=== PATIENT | male | born 1955 | race Caucasian/White ===

== ENCOUNTER → 2017-05-27 | Outpatient (REF) | payer MEDICARE, OTHER, BC ==
[2017-05-27 14:22] LABS: MAGNESIUM LEVEL 2.6 MG/DL (1.8-2.4); URIC ACID 6.9 MG/DL (3.5-7.2)
[2017-05-27 14:22] LABS: PHOSPHORUS LEVEL 3.1 MG/DL (2.5-4.9)
== END ==
LOC: M LAB REF 13:14
DX: C64.9 Malignant neoplasm of unspecified kidney, except renal pelvis (principal)
CPT/HCPCS: 83735

== ENCOUNTER → 2017-07-01 | Outpatient (REF) | payer MEDICARE, OTHER ==
[2017-07-01 14:15] LABS: PHOSPHORUS LEVEL 2.7 MG/DL (2.5-4.9)
[2017-07-01 14:15] LABS: MAGNESIUM LEVEL 2.7 MG/DL (1.8-2.4)
== END ==
LOC: M LAB REF 13:36
DX: C64.9 Malignant neoplasm of unspecified kidney, except renal pelvis (principal)
CPT/HCPCS: 83735

== ENCOUNTER → 2017-07-19 | Outpatient (REF) | payer MEDICARE, OTHER ==
[2017-07-19 19:22] LABS: PHOSPHORUS LEVEL 2.3 MG/DL (2.5-4.9)
[2017-07-19 19:22] LABS: MAGNESIUM LEVEL 2.9 MG/DL (1.8-2.4)
== END ==
LOC: M LAB REF 17:29
DX: C79.00 Secondary malignant neoplasm of unspecified kidney and renal pelvis (principal)
CPT/HCPCS: 83735

== ENCOUNTER → 2017-09-07 | Outpatient (REF) | payer MEDICARE, OTHER, BC ==
[2017-09-07 13:40] LABS: PHOSPHORUS LEVEL 1.9 MG/DL (2.5-4.9)
[2017-09-07 13:40] LABS: MAGNESIUM LEVEL 2.3 MG/DL (1.8-2.4)
== END ==
LOC: M LAB REF 12:54
DX: C20 Malignant neoplasm of rectum (principal)
CPT/HCPCS: 83735

== ENCOUNTER → 2017-10-18 | Outpatient (REF) | payer MEDICARE, OTHER, BC ==
[2017-10-18 14:11] LABS: MAGNESIUM LEVEL 2.2 MG/DL (1.8-2.4)
[2017-10-18 14:11] LABS: PHOSPHORUS LEVEL 2.6 MG/DL (2.5-4.9)
== END ==
LOC: M LAB REF 13:36
DX: C78.1 Secondary malignant neoplasm of mediastinum (principal); C64.1 Malignant neoplasm of right kidney, except renal pelvis
CPT/HCPCS: 83735

== ENCOUNTER → 2017-11-25 | Outpatient (REF) | payer MEDICARE, OTHER, BC ==
[2017-11-25 14:31] LABS: PHOSPHORUS LEVEL 2.2 MG/DL (2.5-4.9)
[2017-11-25 14:31] LABS: MAGNESIUM LEVEL 2.2 MG/DL (1.8-2.4)
== END ==
LOC: M LAB REF 13:55
DX: C78.1 Secondary malignant neoplasm of mediastinum (principal); C64.1 Malignant neoplasm of right kidney, except renal pelvis
CPT/HCPCS: 83735

== ENCOUNTER 2018-02-10 16:03 | Emergency (ER) | payer MEDICARE, BC, OTHER ==
[2018-02-10] MEDS: METOPROLOL TART 25 MG TABLET PO (18:32)
== END 2018-02-10 18:38 | disposition home or self-care (01) ==
LOC: M ED 16:03
DX: R04.0 Epistaxis (principal); I10 Essential (primary) hypertension; F17.200 Nicotine dependence, unspecified, uncomplicated; Z88.8 Allergy status to other drugs, medicaments and biological substances; Z79.84 Long term (current) use of oral hypoglycemic drugs; Z79.899 Other long term (current) drug therapy
CPT/HCPCS: 99283

== ENCOUNTER 2018-02-12 21:14 | Emergency (ER) | payer MEDICARE, BC, OTHER ==
[2018-02-12] MEDS: CEPHALEXIN 500 MG CAP PO (23:45)
== END 2018-02-12 23:52 | disposition home or self-care (01) ==
LOC: M ED 21:14
DX: R04.0 Epistaxis (principal); I10 Essential (primary) hypertension; E11.9 Type 2 diabetes mellitus without complications; F17.200 Nicotine dependence, unspecified, uncomplicated; Z85.528 Personal history of other malignant neoplasm of kidney; Z90.5 Acquired absence of kidney; Z79.899 Other long term (current) drug therapy; Z79.84 Long term (current) use of oral hypoglycemic drugs; Z79.82 Long term (current) use of aspirin; Z79.51 Long term (current) use of inhaled steroids
CPT/HCPCS: 30906

== ENCOUNTER 2018-02-13 09:29 | Emergency (ER) | payer MEDICARE, BC, OTHER | END 2018-02-13 11:19 | disposition home or self-care (01) | LOC: M ED 09:29 | DX: R04.0 Epistaxis (principal); Z72.0 Tobacco use; Z88.6 Allergy status to analgesic agent | CPT/HCPCS: 30901 ==

== ENCOUNTER 2018-03-08 14:38 | Inpatient (IN) | payer MEDICARE, BC, OTHER ==
[2018-03-08 16:14] LABS: HEMATOCRIT 46.3 % (42.0-52.0); HEMOGLOBIN 15.9 g/dl (13.5-17.5); MEAN CORPUSCULAR HEMOGLOBIN 33.2 pg (27.0-33.0); MEAN CORPUSCULAR HGB CONC 34.3 g/dl (32.0-36.5); MEAN CORPUSCULAR VOLUME 96.7 fl (80.0-96.0); PLATELET COUNT, AUTOMATED 224 10^3/uL (150-450); RED BLOOD COUNT 4.79 10^6/uL (4.30-6.10); RED CELL DISTRIBUTION WIDTH 13.4 % (11.5-14.5); WHITE BLOOD COUNT 7.9 10^3/uL (4.0-10.0)
[2018-03-08] MEDS: NS 1,000 ML IV ×4 (16:32→21:22)
[2018-03-08 16:38] LABS: ALBUMIN 3.3 GM/DL (3.2-5.2); ALBUMIN/GLOBULIN RATIO 1.06 (1.00-1.93); ALKALINE PHOSPHATASE 50 U/L (45-117); ALT/SGPT 21 U/L (12-78); ANION GAP 13 MEQ/L (8-16); AST/SGOT 15 U/L (7-37); BILIRUBIN,DIRECT 0.2 MG/DL (0.0-0.2); BILIRUBIN,TOTAL 0.6 MG/DL (0.2-1.0); BLOOD UREA NITROGEN 35 MG/DL (7-18); CALCIUM LEVEL 8.9 MG/DL (8.8-10.2); CARBON DIOXIDE LEVEL 16 MEQ/L (21-32); CHLORIDE LEVEL 105 MEQ/L (98-107); CK-MB VALUE MASS < 1.0 NG/ML (<3.6); CPK CREATINE PHOSPHOKINASE 39 U/L (39-308); CREATININE FOR GFR 2.93 MG/DL (0.70-1.30); FREE T4 1.28 NG/DL (0.76-1.46); GLOMERULAR FILTRATION RATE 23.3 (>49); GLUCOSE, FASTING 117 MG/DL (70-100); LIPASE 95 U/L (73-393); MB/CK RELATIVE INDEX 2.56 (< OR =4); POTASSIUM SERUM 4.3 MEQ/L (3.5-5.1); SODIUM LEVEL 134 MEQ/L (136-145); TOTAL PROTEIN 6.4 GM/DL (6.4-8.2); TROPONIN I < 0.02 NG/ML (< 0.10)
[2018-03-08 16:39] LABS: ADD MANUAL DIFFER YES; DIFF SLIDE NUMBER 332; POS COUNT POS FLAG; POSITIVE MORPH POS FLAG
[2018-03-08] MEDS: ONDANSETRON 4MG/2ML VIAL (J2405) IV ×2 (16:47→21:20)
[2018-03-08 17:09] LABS: ATYPICAL LYMPH 7 % (0-5); BANDS 24 % (< 11); BASOPHILS 1 % (0-4); EOSINOPHILS 1 % (0-5); LYMPHOCYTES 15 % (16-52); MONOCYTES 14 % (0-8); NEUTROPHILS 38 % (35-75); PLATELET CLUMPS SMALL AMT; PLATELET ESTIMATE NORMAL (NORMAL); TOXIC GRANULATION 1+
[2018-03-08 17:29] LABS: INR 1.02; PROTHROMBIN TIME 13.5 SECONDS (12.1-14.4)
[2018-03-08 17:30] LABS: PARTIAL THROMBOPLASTIN TIME 24.9 SECONDS (25.4-37.6)
[2018-03-08 17:54] LABS: LACTIC ACID SEPSIS PROTOCOL 3.2 MMOL/L (0.4-2.0)
[2018-03-08] MEDS ORDERED: ALPRAZolam 0.25 MG TAB PO (19:00)
[2018-03-08] MEDS ORDERED: ALBUTEROL 90 MCG/ACT 8GM HFA INHALER INH (19:00)
[2018-03-08] MEDS: PANTOPRAZOLE 40MG INJ (PROTONIX) (C9113) IV (21:20)
[2018-03-08] MEDS: cefTRIAXone SOD 2 GM in D5W MINI-BAG PLUS 50 ML IV (21:21)
[2018-03-08] MEDS: metroNIDAZOLE 500 MG in APPROPRIATE DILUENT 1 EA IV (21:22)
[2018-03-09] MEDS: metroNIDAZOLE 500 MG in APPROPRIATE DILUENT 1 EA IV (04:45)
[2018-03-09] MEDS: NS 1,000 ML IV ×3 (04:46→13:12)
[2018-03-09 07:43] LABS: HEMATOCRIT 40.8 % (42.0-52.0); MEAN CORPUSCULAR HEMOGLOBIN 32.6 pg (27.0-33.0); MEAN CORPUSCULAR HGB CONC 33.6 g/dl (32.0-36.5); MEAN CORPUSCULAR VOLUME 97.1 fl (80.0-96.0); PLATELET COUNT, AUTOMATED 173 10^3/uL (150-450); RED CELL DISTRIBUTION WIDTH 13.5 % (11.5-14.5); WHITE BLOOD COUNT 5.6 10^3/uL (4.0-10.0)
[2018-03-09 07:53] LABS: HEMOGLOBIN 13.7 g/dl (13.5-17.5)
[2018-03-09 08:04] LABS: ANION GAP 10 MEQ/L (8-16); BLOOD UREA NITROGEN 34 MG/DL (7-18); CALCIUM LEVEL 8.3 MG/DL (8.8-10.2); CARBON DIOXIDE LEVEL 16 MEQ/L (21-32); CHLORIDE LEVEL 112 MEQ/L (98-107); CREATININE FOR GFR 2.05 MG/DL (0.70-1.30); GLOMERULAR FILTRATION RATE 35.2 (>49); GLUCOSE, FASTING 108 MG/DL (70-100); POTASSIUM SERUM 3.8 MEQ/L (3.5-5.1); SODIUM LEVEL 138 MEQ/L (136-145)
[2018-03-09] MEDS: predniSONE 50 MG TAB PO (09:03)
[2018-03-09] MEDS: PANTOPRAZOLE 40MG INJ (PROTONIX) (C9113) IV (20:29)
[2018-03-09] MEDS: cefTRIAXone SOD 2 GM in D5W MINI-BAG PLUS 50 ML IV (20:29)
[2018-03-10] MEDS: NS 1,000 ML IV ×2 (02:36→08:06)
[2018-03-10 05:46] LABS: HEMATOCRIT 35.5 % (42.0-52.0); HEMOGLOBIN 11.8 g/dl (13.5-17.5); MEAN CORPUSCULAR HEMOGLOBIN 32.7 pg (27.0-33.0); MEAN CORPUSCULAR HGB CONC 33.2 g/dl (32.0-36.5); MEAN CORPUSCULAR VOLUME 98.3 fl (80.0-96.0); PLATELET COUNT, AUTOMATED 177 10^3/uL (150-450); RED BLOOD COUNT 3.61 10^6/uL (4.30-6.10); RED CELL DISTRIBUTION WIDTH 13.4 % (11.5-14.5); WHITE BLOOD COUNT 6.5 10^3/uL (4.0-10.0)
[2018-03-10 06:11] LABS: BLOOD UREA NITROGEN 24 MG/DL (7-18); CARBON DIOXIDE LEVEL 16 MEQ/L (21-32); CHLORIDE LEVEL 118 MEQ/L (98-107); CREATININE FOR GFR 1.37 MG/DL (0.70-1.30); GLOMERULAR FILTRATION RATE 56.1 (>49); GLUCOSE, FASTING 140 MG/DL (70-100); POTASSIUM SERUM 3.7 MEQ/L (3.5-5.1); SODIUM LEVEL 142 MEQ/L (136-145)
[2018-03-10 06:12] LABS: ANION GAP 8 MEQ/L (8-16); CALCIUM LEVEL 8.6 MG/DL (8.8-10.2)
[2018-03-10] MEDS: predniSONE 50 MG TAB PO (08:06)
== END 2018-03-10 11:50 | disposition home or self-care (01) | DRG 371 ==
LOC: M PCU 03-09 20:01 → M ED 14:38 → M ED INP 18:57 → M ICU 21:05
DX: A04.9 Bacterial intestinal infection, unspecified (principal); R57.1 Hypovolemic shock; N17.9 Acute kidney failure, unspecified; C77.1 Secondary and unspecified malignant neoplasm of intrathoracic lymph nodes; F17.210 Nicotine dependence, cigarettes, uncomplicated; J44.9 Chronic obstructive pulmonary disease, unspecified; R73.03 Prediabetes; Z85.528 Personal history of other malignant neoplasm of kidney; Z90.5 Acquired absence of kidney; Z98.1 Arthrodesis status; Z79.84 Long term (current) use of oral hypoglycemic drugs; Z79.899 Other long term (current) drug therapy; Z88.6 Allergy status to analgesic agent

== ENCOUNTER 2018-03-14 10:04 | Inpatient (IN) | payer MEDICARE, BC, OTHER ==
[2018-03-14] MEDS: NS 1,000 ML IV (10:55)
[2018-03-14] MEDS ORDERED: NS 1,000 ML IV (11:14)
[2018-03-14] MEDS ORDERED: POTASSIUM CHLORIDE 10 MEQ SR TABLET PO (11:30)
[2018-03-14] MEDS: POTASSIUM CHLORIDE 10 MEQ SR TABLET PO ×4 (11:37→22:51)
[2018-03-14 11:41] LABS: ALBUMIN 3.4 GM/DL (3.2-5.2); ALBUMIN/GLOBULIN RATIO 1.06 (1.00-1.93); ALKALINE PHOSPHATASE 63 U/L (45-117); ALT/SGPT 23 U/L (12-78); AST/SGOT 11 U/L (7-37); BILIRUBIN,DIRECT 0.1 MG/DL (0.0-0.2); BILIRUBIN,TOTAL 0.4 MG/DL (0.2-1.0); MAGNESIUM LEVEL 2.6 MG/DL (1.8-2.4); PHOSPHORUS LEVEL 4.1 MG/DL (2.5-4.9); TOTAL PROTEIN 6.6 GM/DL (6.4-8.2)
[2018-03-14] MEDS ORDERED: PROCHLORPERAZINE 5 MG TAB (S0183) PO (11:45)
[2018-03-14] MEDS ORDERED: ALBUTEROL 90 MCG/ACT 8GM HFA INHALER INH (11:45)
[2018-03-14] MEDS ORDERED: IPRATROPIUM 0.5MG/ALBUTEROL 2.5MG INH SOL UD 3ML (DUONEB)(J7620) NEB (11:45)
[2018-03-14] MEDS: SODIUM BICARBONATE 150 MEQ in STERILE WATER LITER BAG 1,000 ML IV (13:31)
[2018-03-14] MEDS: metroNIDAZOLE 500 MG in APPROPRIATE DILUENT 1 EA IV (13:31)
[2018-03-14 17:04] LABS: ANION GAP 9 MEQ/L (8-16); BLOOD UREA NITROGEN 48 MG/DL (7-18); CALCIUM LEVEL 9.1 MG/DL (8.8-10.2); CARBON DIOXIDE LEVEL 13 MEQ/L (21-32); CHLORIDE LEVEL 112 MEQ/L (98-107); CREATININE FOR GFR 2.05 MG/DL (0.70-1.30); GLOMERULAR FILTRATION RATE 35.2 (>49); GLUCOSE, FASTING 173 MG/DL (70-100); SODIUM LEVEL 134 MEQ/L (136-145)
[2018-03-14 17:10] LABS: LACTIC ACID SEPSIS PROTOCOL 4.7 MMOL/L (0.4-2.0)
[2018-03-14] MEDS: SODIUM BICARBONATE 150 MEQ in D5W 1,000 ML IV (17:50)
[2018-03-14] MEDS ORDERED: SODIUM BICARBONATE 325 MG TAB PO (18:30)
[2018-03-14] MEDS: SODIUM BICARBONATE 325 MG TAB PO (20:33)
[2018-03-14] MEDS: PIPERACILLIN/TAZOBACTAM SOD 2.25 GM in D5W MINI-BAG PLUS 50 ML IV (20:33)
[2018-03-14 21:09] LABS: IONIZED CALCIUM 4.7 MG/DL (4.5-5.3)
[2018-03-14 21:40] LABS: ANION GAP 8 MEQ/L (8-16); BLOOD UREA NITROGEN 48 MG/DL (7-18); CALCIUM LEVEL 9.2 MG/DL (8.8-10.2); CARBON DIOXIDE LEVEL 15 MEQ/L (21-32); CHLORIDE LEVEL 113 MEQ/L (98-107); CREATININE FOR GFR 1.91 MG/DL (0.70-1.30); GLOMERULAR FILTRATION RATE 38.2 (>49); GLUCOSE, FASTING 183 MG/DL (70-100); MAGNESIUM LEVEL 2.4 MG/DL (1.8-2.4); POTASSIUM SERUM 3.1 MEQ/L (3.5-5.1); SODIUM LEVEL 136 MEQ/L (136-145)
[2018-03-14 21:41] LABS: LACTIC ACID SEPSIS PROTOCOL 4.9 MMOL/L (0.4-2.0)
[2018-03-14] MEDS: LOPERAMIDE 2 MG CAP PO (22:51)
[2018-03-15] MEDS: POTASSIUM CHLORIDE 10 MEQ SR TABLET PO ×3 (00:33→05:14)
[2018-03-15 01:48] LABS: IONIZED CALCIUM 4.8 MG/DL (4.5-5.3)
[2018-03-15] MEDS: PIPERACILLIN/TAZOBACTAM SOD 2.25 GM in D5W MINI-BAG PLUS 50 ML IV ×4 (01:51→20:11)
[2018-03-15] MEDS: SODIUM BICARBONATE 150 MEQ in STERILE WATER LITER BAG 1,000 ML IV ×2 (01:52→09:56)
[2018-03-15 02:12] LABS: ANION GAP 9 MEQ/L (8-16); BLOOD UREA NITROGEN 48 MG/DL (7-18); CALCIUM LEVEL 9.6 MG/DL (8.8-10.2); CARBON DIOXIDE LEVEL 15 MEQ/L (21-32); CHLORIDE LEVEL 112 MEQ/L (98-107); CREATININE FOR GFR 1.94 MG/DL (0.70-1.30); GLOMERULAR FILTRATION RATE 37.5 (>49); GLUCOSE, FASTING 123 MG/DL (70-100); MAGNESIUM LEVEL 2.3 MG/DL (1.8-2.4); POTASSIUM SERUM 3.3 MEQ/L (3.5-5.1); SODIUM LEVEL 136 MEQ/L (136-145)
[2018-03-15] MEDS: LOPERAMIDE 2 MG CAP PO ×3 (02:43→07:55)
[2018-03-15 05:51] LABS: IONIZED CALCIUM 4.5 MG/DL (4.5-5.3)
[2018-03-15 05:57] LABS: HEMATOCRIT 46.5 % (42.0-52.0); MEAN CORPUSCULAR HEMOGLOBIN 32.4 pg (27.0-33.0); MEAN CORPUSCULAR HGB CONC 34.4 g/dl (32.0-36.5); MEAN CORPUSCULAR VOLUME 94.1 fl (80.0-96.0); PLATELET COUNT, AUTOMATED 281 10^3/uL (150-450); RED BLOOD COUNT 4.94 10^6/uL (4.30-6.10); RED CELL DISTRIBUTION WIDTH 13.4 % (11.5-14.5); WHITE BLOOD COUNT 14.4 10^3/uL (4.0-10.0)
[2018-03-15 06:10] LABS: ANION GAP 7 MEQ/L (8-16); BLOOD UREA NITROGEN 46 MG/DL (7-18); CALCIUM LEVEL 9.6 MG/DL (8.8-10.2); CARBON DIOXIDE LEVEL 15 MEQ/L (21-32); CHLORIDE LEVEL 110 MEQ/L (98-107); CREATININE FOR GFR 1.85 MG/DL (0.70-1.30); GLOMERULAR FILTRATION RATE 39.6 (>49); GLUCOSE, FASTING 114 MG/DL (70-100); MAGNESIUM LEVEL 2.4 MG/DL (1.8-2.4); POTASSIUM SERUM 3.4 MEQ/L (3.5-5.1); SODIUM LEVEL 132 MEQ/L (136-145)
[2018-03-15 06:23] LABS: LACTIC ACID SEPSIS PROTOCOL 4.5 MMOL/L (0.4-2.0)
[2018-03-15] MEDS: predniSONE 50 MG TAB PO (07:55)
[2018-03-15] MEDS: SODIUM BICARBONATE 325 MG TAB PO ×3 (07:55→17:31)
[2018-03-15 12:49] LABS: LACTIC ACID SEPSIS PROTOCOL 6.2 MMOL/L (0.4-2.0)
[2018-03-15 12:55] LABS: ANION GAP 14 MEQ/L (8-16); BLOOD UREA NITROGEN 44 MG/DL (7-18); CALCIUM LEVEL 9.4 MG/DL (8.8-10.2); CARBON DIOXIDE LEVEL 13 MEQ/L (21-32); CHLORIDE LEVEL 107 MEQ/L (98-107); CREATININE FOR GFR 2.06 MG/DL (0.70-1.30); GLUCOSE, FASTING 158 MG/DL (70-100); POTASSIUM SERUM 2.8 MEQ/L (3.5-5.1); SODIUM LEVEL 134 MEQ/L (136-145)
[2018-03-15] MEDS ORDERED: LIDOCAINE 1% MDV 20ML VIAL As Ordered (15:04)
[2018-03-15] MEDS: KCL 10MEQ/100ML SWI (KRUN) 10 MEQ in APPROPRIATE DILUENT 1 EA IV ×2 (16:00→17:31)
[2018-03-15 18:12] LABS: ANION GAP 10 MEQ/L (8-16); BLOOD UREA NITROGEN 46 MG/DL (7-18); CALCIUM LEVEL 9.3 MG/DL (8.8-10.2); CARBON DIOXIDE LEVEL 21 MEQ/L (21-32); CHLORIDE LEVEL 104 MEQ/L (98-107); CREATININE FOR GFR 1.87 MG/DL (0.70-1.30); GLOMERULAR FILTRATION RATE 39.1 (>49); GLUCOSE, FASTING 137 MG/DL (70-100); SODIUM LEVEL 135 MEQ/L (136-145)
[2018-03-15] MEDS: SODIUM BICARBONATE 150 MEQ in D5W 1,000 ML IV (18:27)
[2018-03-15] MEDS: SODIUM CHLORIDE 0.9% INJ 10 ML SYR IV (18:27)
[2018-03-15] MEDS ORDERED: SODIUM BICARBONATE 150 MEQ in D5W 1,000 ML IV (18:33)
[2018-03-15] MEDS: KCL 20MEQ IN 100ML SWI (KRUN) 20 MEQ in APPROPRIATE DILUENT 1 EA IV ×2 (18:57→20:11)
[2018-03-15] MEDS: ONDANSETRON 4MG/2ML VIAL (J2405) IV (20:12)
[2018-03-15 20:48] LABS: LDH LACTATE DEHYDROGENASE 179 U/L (87-241)
[2018-03-15] MEDS: KCL 40MEQ IN D5/0.45NS 1000ML 1,000 ML IV (21:30)
[2018-03-16 00:19] LABS: ANION GAP 13 MEQ/L (8-16); BLOOD UREA NITROGEN 47 MG/DL (7-18); CALCIUM LEVEL 9.5 MG/DL (8.8-10.2); CARBON DIOXIDE LEVEL 20 MEQ/L (21-32); CHLORIDE LEVEL 102 MEQ/L (98-107); CREATININE FOR GFR 2.07 MG/DL (0.70-1.30); GLOMERULAR FILTRATION RATE 34.8 (>49); GLUCOSE, FASTING 155 MG/DL (70-100); MAGNESIUM LEVEL 2.2 MG/DL (1.8-2.4); POTASSIUM SERUM 3.2 MEQ/L (3.5-5.1); SODIUM LEVEL 135 MEQ/L (136-145)
[2018-03-16 00:26] LABS: LACTIC ACID SEPSIS PROTOCOL 6.5 MMOL/L (0.4-2.0)
[2018-03-16] MEDS: PIPERACILLIN/TAZOBACTAM SOD 2.25 GM in D5W MINI-BAG PLUS 50 ML IV ×4 (02:00→19:44)
[2018-03-16 04:29] LABS: HEMATOCRIT 42.3 % (42.0-52.0); HEMOGLOBIN 15.1 g/dl (13.5-17.5); MEAN CORPUSCULAR HEMOGLOBIN 32.3 pg (27.0-33.0); MEAN CORPUSCULAR HGB CONC 35.7 g/dl (32.0-36.5); MEAN CORPUSCULAR VOLUME 90.6 fl (80.0-96.0); PLATELET COUNT, AUTOMATED 265 10^3/uL (150-450); RED BLOOD COUNT 4.67 10^6/uL (4.30-6.10); WHITE BLOOD COUNT 11.8 10^3/uL (4.0-10.0)
[2018-03-16 05:02] LABS: ANION GAP 13 MEQ/L (8-16); BLOOD UREA NITROGEN 45 MG/DL (7-18); CALCIUM LEVEL 9.4 MG/DL (8.8-10.2); CARBON DIOXIDE LEVEL 18 MEQ/L (21-32); CHLORIDE LEVEL 103 MEQ/L (98-107); GLOMERULAR FILTRATION RATE 34.2 (>49); GLUCOSE, FASTING 182 MG/DL (70-100); MAGNESIUM LEVEL 2.1 MG/DL (1.8-2.4); POTASSIUM SERUM 2.5 MEQ/L (3.5-5.1); SODIUM LEVEL 134 MEQ/L (136-145)
[2018-03-16] MEDS ORDERED: SODIUM BICARBONATE 100 MEQ in D5W 1,000 ML IV (05:15)
[2018-03-16] MEDS ORDERED: DEXTROSE 50% 50 ML SYRINGE IV (05:30)
[2018-03-16] MEDS ORDERED: GLUCAGON FOR INJ 1 MG VIAL (J1610) SC (05:30)
[2018-03-16] MEDS ORDERED: GLUCOSE 4 GM CHEW TABLET PO (05:30)
[2018-03-16 05:39] LABS: IONIZED CALCIUM 4.6 MG/DL (4.5-5.3)
[2018-03-16] MEDS: SODIUM CHLORIDE 0.9% INJ 10 ML SYR IV ×2 (06:00→18:21)
[2018-03-16] MEDS: POTASSIUM CHLORIDE 10 MEQ SR TABLET PO (06:20)
[2018-03-16] MEDS: SODIUM BICARBONATE 150 MEQ in D5W 1,000 ML IV (06:21)
[2018-03-16] MEDS: KCL 10MEQ/100ML SWI (KRUN) 10 MEQ in APPROPRIATE DILUENT 1 EA IV ×7 (06:22→17:23)
[2018-03-16] MEDS ORDERED: inFLIXimab 100MG/10ML VIAL (REMICADE) J1745 PER 10MG IV (08:30)
[2018-03-16] MEDS ORDERED: FILTER 1.2 MICRON (ADULT TPN/MANNITOL/REMICADE) XX (09:15)
[2018-03-16] MEDS ORDERED: ACETAMINOPHEN 650 MG SUPP PR (09:30)
[2018-03-16 10:26] LABS: CPK CREATINE PHOSPHOKINASE 27 U/L (39-308); MB/CK RELATIVE INDEX 4.07 (< OR =4); NT-PRO BNP 328 PG/ML (<125); TROPONIN I 0.08 NG/ML (< 0.10)
[2018-03-16 10:30] LABS: LACTIC ACID SEPSIS PROTOCOL 5.9 MMOL/L (0.4-2.0)
[2018-03-16] MEDS: diphenhydrAMINE INJ 50MG/ML VIAL (J1200) IV (10:37)
[2018-03-16] MEDS: INFLIXIMAB BIOSIMILAR 500 MG in NS 200 ML IV (10:38)
[2018-03-16] MEDS: NS 1,000 ML IV (10:39)
[2018-03-16] MEDS ORDERED: POTASSIUM CHLORIDE IV (12:00)
[2018-03-16] MEDS ORDERED: NS 0.45% IV (12:00)
[2018-03-16] MEDS ORDERED: SODIUM BICARBONATE IV (12:00)
[2018-03-16] MEDS: SODIUM BICARBONATE IV ×3 (13:40→21:42)
[2018-03-16] MEDS: POTASSIUM CHLORIDE IV ×3 (13:40→21:42)
[2018-03-16] MEDS: NS 0.45% IV ×3 (13:40→21:42)
[2018-03-16 14:20] LABS: ANION GAP 9 MEQ/L (8-16); BLOOD UREA NITROGEN 40 MG/DL (7-18); CALCIUM LEVEL 7.4 MG/DL (8.8-10.2); CARBON DIOXIDE LEVEL 22 MEQ/L (21-32); CHLORIDE LEVEL 106 MEQ/L (98-107); CREATININE FOR GFR 1.86 MG/DL (0.70-1.30); GLOMERULAR FILTRATION RATE 39.4 (>49); GLUCOSE, FASTING 120 MG/DL (70-100); POTASSIUM SERUM 2.4 MEQ/L (3.5-5.1); SODIUM LEVEL 137 MEQ/L (136-145)
[2018-03-16] MEDS: LOPERAMIDE 2 MG CAP PO ×3 (14:22→21:09)
[2018-03-16 14:34] LABS: LACTIC ACID SEPSIS PROTOCOL 4.7 MMOL/L (0.4-2.0)
[2018-03-16] MEDS: ALPRAZolam 0.25 MG TAB PO (21:09)
[2018-03-16 21:46] LABS: BLOOD UREA NITROGEN 49 MG/DL (7-18); CARBON DIOXIDE LEVEL 28 MEQ/L (21-32); CHLORIDE LEVEL 97 MEQ/L (98-107); CREATININE FOR GFR 2.26 MG/DL (0.70-1.30); GLOMERULAR FILTRATION RATE 31.5 (>49); GLUCOSE, FASTING 129 MG/DL (70-100); POTASSIUM SERUM 3.5 MEQ/L (3.5-5.1); SODIUM LEVEL 131 MEQ/L (136-145)
[2018-03-16 21:48] LABS: ANION GAP 6 MEQ/L (8-16); CALCIUM LEVEL 9.1 MG/DL (8.8-10.2)
[2018-03-16 23:09] LABS: BEDSIDE GLUCOSE 127 MG/DL (80-115)
[2018-03-17 00:06] LABS: ANION GAP 3 MEQ/L (8-16); BLOOD UREA NITROGEN 49 MG/DL (7-18); CARBON DIOXIDE LEVEL 30 MEQ/L (21-32); CHLORIDE LEVEL 99 MEQ/L (98-107); CREATININE FOR GFR 1.95 MG/DL (0.70-1.30); GLOMERULAR FILTRATION RATE 37.3 (>49); GLUCOSE, FASTING 121 MG/DL (70-100); POTASSIUM SERUM 3.3 MEQ/L (3.5-5.1); SODIUM LEVEL 132 MEQ/L (136-145)
[2018-03-17] MEDS: KCL 20MEQ IN 100ML SWI (KRUN) 20 MEQ in APPROPRIATE DILUENT 1 EA IV (00:30)
[2018-03-17] MEDS: PIPERACILLIN/TAZOBACTAM SOD 2.25 GM in D5W MINI-BAG PLUS 50 ML IV ×4 (01:15→20:44)
[2018-03-17] MEDS: POTASSIUM CHLORIDE IV ×5 (03:03→23:50)
[2018-03-17] MEDS: SODIUM BICARBONATE IV ×5 (03:03→23:50)
[2018-03-17] MEDS: NS 0.45% IV ×5 (03:03→23:50)
[2018-03-17] MEDS: SODIUM CHLORIDE 0.9% INJ 10 ML SYR IV ×3 (05:03→17:47)
[2018-03-17 05:21] LABS: HEMATOCRIT 39.5 % (42.0-52.0); HEMOGLOBIN 13.7 g/dl (13.5-17.5); MEAN CORPUSCULAR HEMOGLOBIN 32.1 pg (27.0-33.0); MEAN CORPUSCULAR HGB CONC 34.7 g/dl (32.0-36.5); MEAN CORPUSCULAR VOLUME 92.5 fl (80.0-96.0); PLATELET COUNT, AUTOMATED 232 10^3/uL (150-450); RED BLOOD COUNT 4.27 10^6/uL (4.30-6.10); RED CELL DISTRIBUTION WIDTH 13.2 % (11.5-14.5); WHITE BLOOD COUNT 11.3 10^3/uL (4.0-10.0)
[2018-03-17 05:46] LABS: ANION GAP 2 MEQ/L (8-16); BLOOD UREA NITROGEN 47 MG/DL (7-18); CALCIUM LEVEL 8.8 MG/DL (8.8-10.2); CARBON DIOXIDE LEVEL 29 MEQ/L (21-32); CHLORIDE LEVEL 101 MEQ/L (98-107); CREATININE FOR GFR 1.67 MG/DL (0.70-1.30); GLOMERULAR FILTRATION RATE 44.6 (>49); GLUCOSE, FASTING 105 MG/DL (70-100); MAGNESIUM LEVEL 2.1 MG/DL (1.8-2.4); POTASSIUM SERUM 3.5 MEQ/L (3.5-5.1); SODIUM LEVEL 132 MEQ/L (136-145)
[2018-03-17] MEDS: LOPERAMIDE 2 MG CAP PO ×2 (08:29→12:45)
[2018-03-17] MEDS: PERCOCET 5MG/325MG TAB PO ×2 (08:30→20:45)
[2018-03-17 08:46] LABS: LACTIC ACID SEPSIS PROTOCOL 1.5 MMOL/L (0.4-2.0)
[2018-03-17 12:24] LABS: BEDSIDE GLUCOSE 101 MG/DL (80-115)
[2018-03-17] MEDS: OCTREOTIDE ACETATE 100 MCG/ML VIAL (J2354) IV ×2 (14:27→23:15)
[2018-03-17] MEDS: BREO ELLIPTA INH (15:42)
[2018-03-17] MEDS: INCRUSE ELLIPTA (PATIENT'S OWN MED) INH (15:43)
[2018-03-17] MEDS: MULTIVITAMIN -ADULT INJECTION 10 ML, CR/CU/SE/MN/ZN INJ 1 ML in AMINO AC/ELECTROLYTE/DE... IV (17:46)
[2018-03-17] MEDS: FAT EMULSION IV 20% 500 ML IV (17:46)
[2018-03-17 18:53] LABS: BEDSIDE GLUCOSE 163 MG/DL (80-115)
[2018-03-18 00:21] LABS: BEDSIDE GLUCOSE 215 MG/DL (80-115)
[2018-03-18] MEDS: PIPERACILLIN/TAZOBACTAM SOD 2.25 GM in D5W MINI-BAG PLUS 50 ML IV ×4 (02:07→19:26)
[2018-03-18] MEDS: LOPERAMIDE 2 MG CAP PO (03:46)
[2018-03-18] MEDS: PERCOCET 5MG/325MG TAB PO ×2 (03:46→23:33)
[2018-03-18 05:47] LABS: BEDSIDE GLUCOSE 173 MG/DL (80-115)
[2018-03-18] MEDS: SODIUM BICARBONATE IV ×3 (05:48→23:33)
[2018-03-18] MEDS: POTASSIUM CHLORIDE IV ×3 (05:48→23:33)
[2018-03-18] MEDS: NS 0.45% IV ×3 (05:48→23:33)
[2018-03-18] MEDS: SODIUM CHLORIDE 0.9% INJ 10 ML SYR IV ×2 (05:49→18:00)
[2018-03-18] MEDS: OCTREOTIDE ACETATE 100 MCG/ML VIAL (J2354) IV ×3 (06:10→23:33)
[2018-03-18 06:12] LABS: HEMATOCRIT 43.7 % (42.0-52.0); HEMOGLOBIN 15.3 g/dl (13.5-17.5); MEAN CORPUSCULAR HEMOGLOBIN 32.7 pg (27.0-33.0); MEAN CORPUSCULAR VOLUME 93.4 fl (80.0-96.0); PLATELET COUNT, AUTOMATED 237 10^3/uL (150-450); RED BLOOD COUNT 4.68 10^6/uL (4.30-6.10); RED CELL DISTRIBUTION WIDTH 13.1 % (11.5-14.5); WHITE BLOOD COUNT 12.5 10^3/uL (4.0-10.0)
[2018-03-18 06:36] LABS: ANION GAP 9 MEQ/L (8-16); BLOOD UREA NITROGEN 46 MG/DL (7-18); CALCIUM LEVEL 9.2 MG/DL (8.8-10.2); CARBON DIOXIDE LEVEL 30 MEQ/L (21-32); CHLORIDE LEVEL 94 MEQ/L (98-107); CREATININE FOR GFR 1.83 MG/DL (0.70-1.30); GLOMERULAR FILTRATION RATE 40.1 (>49); GLUCOSE, FASTING 147 MG/DL (70-100); MAGNESIUM LEVEL 2.5 MG/DL (1.8-2.4); POTASSIUM SERUM 3.8 MEQ/L (3.5-5.1); SODIUM LEVEL 133 MEQ/L (136-145)
[2018-03-18] MEDS: BREO ELLIPTA INH (07:32)
[2018-03-18] MEDS: INCRUSE ELLIPTA (PATIENT'S OWN MED) INH (07:32)
[2018-03-18] MEDS: NS 1,000 ML IV ×3 (08:09→14:34)
[2018-03-18] MEDS: COSYNTROPIN 0.25 MG/ML VIAL (J0834 PER 0.25MG) IV (10:57)
[2018-03-18 12:24] LABS: BEDSIDE GLUCOSE 279 MG/DL (80-115)
[2018-03-18 15:40] LABS: IONIZED CALCIUM 4.5 MG/DL (4.5-5.3)
[2018-03-18] MEDS: HYDROCORTISONE 100 MG/2 ML VIAL (J1720) IV ×2 (15:46→20:42)
[2018-03-18 16:13] LABS: ANION GAP 9 MEQ/L (8-16); BLOOD UREA NITROGEN 48 MG/DL (7-18); CALCIUM LEVEL 8.2 MG/DL (8.8-10.2); CARBON DIOXIDE LEVEL 25 MEQ/L (21-32); CHLORIDE LEVEL 100 MEQ/L (98-107); CREATININE FOR GFR 1.71 MG/DL (0.70-1.30); GLOMERULAR FILTRATION RATE 43.4 (>49); GLUCOSE, FASTING 209 MG/DL (70-100); MAGNESIUM LEVEL 2.4 MG/DL (1.8-2.4); PHOSPHORUS LEVEL 2.1 MG/DL (2.5-4.9); POTASSIUM SERUM 3.4 MEQ/L (3.5-5.1); SODIUM LEVEL 134 MEQ/L (136-145)
[2018-03-18 18:06] LABS: BEDSIDE GLUCOSE 200 MG/DL (80-115)
[2018-03-18] MEDS: AMINO AC/ELECTROLYTE/DEX/CALC 2,000 ML IV (18:31)
[2018-03-18] MEDS: FAT EMULSION IV 20% 500 ML IV (18:31)
[2018-03-18 21:28] LABS: ANION GAP 9 MEQ/L (8-16); BLOOD UREA NITROGEN 41 MG/DL (7-18); CALCIUM LEVEL 8.5 MG/DL (8.8-10.2); CARBON DIOXIDE LEVEL 27 MEQ/L (21-32); CHLORIDE LEVEL 100 MEQ/L (98-107); CREATININE FOR GFR 1.61 MG/DL (0.70-1.30); GLOMERULAR FILTRATION RATE 46.5 (>49); GLUCOSE, FASTING 194 MG/DL (70-100); POTASSIUM SERUM 3.4 MEQ/L (3.5-5.1); SODIUM LEVEL 136 MEQ/L (136-145)
[2018-03-18] MEDS: NS 500 ML IV (23:30)
[2018-03-18 23:58] LABS: BEDSIDE GLUCOSE 239 MG/DL (80-115)
[2018-03-19] MEDS: HYDROCORTISONE 100 MG/2 ML VIAL (J1720) IV ×4 (02:25→20:21)
[2018-03-19] MEDS: PIPERACILLIN/TAZOBACTAM SOD 2.25 GM in D5W MINI-BAG PLUS 50 ML IV ×4 (02:25→20:21)
[2018-03-19] MEDS: NS 0.45% IV ×5 (03:56→23:50)
[2018-03-19] MEDS: SODIUM BICARBONATE IV ×5 (03:56→23:50)
[2018-03-19] MEDS: POTASSIUM CHLORIDE IV ×5 (03:56→23:50)
[2018-03-19] MEDS: SODIUM CHLORIDE 0.9% INJ 10 ML SYR IV ×2 (05:13→15:35)
[2018-03-19 05:39] LABS: MEAN CORPUSCULAR HEMOGLOBIN 32.5 pg (27.0-33.0); MEAN CORPUSCULAR HGB CONC 34.4 g/dl (32.0-36.5); MEAN CORPUSCULAR VOLUME 94.5 fl (80.0-96.0); PLATELET COUNT, AUTOMATED 185 10^3/uL (150-450); RED BLOOD COUNT 3.81 10^6/uL (4.30-6.10); RED CELL DISTRIBUTION WIDTH 13.2 % (11.5-14.5); WHITE BLOOD COUNT 11.5 10^3/uL (4.0-10.0)
[2018-03-19 05:43] LABS: HEMOGLOBIN 12.4 g/dl (13.5-17.5)
[2018-03-19] MEDS: OCTREOTIDE ACETATE 100 MCG/ML VIAL (J2354) IV ×3 (06:18→22:33)
[2018-03-19 07:10] LABS: ANION GAP 7 MEQ/L (8-16); BLOOD UREA NITROGEN 34 MG/DL (7-18); CALCIUM LEVEL 8.9 MG/DL (8.8-10.2); CARBON DIOXIDE LEVEL 28 MEQ/L (21-32); CHLORIDE LEVEL 101 MEQ/L (98-107); CREATININE FOR GFR 1.26 MG/DL (0.70-1.30); GLOMERULAR FILTRATION RATE > 60.0 (>49); GLUCOSE, FASTING 176 MG/DL (70-100); LDH LACTATE DEHYDROGENASE 250 U/L (87-241); MAGNESIUM LEVEL 2.3 MG/DL (1.8-2.4); POTASSIUM SERUM 3.7 MEQ/L (3.5-5.1); SODIUM LEVEL 136 MEQ/L (136-145)
[2018-03-19] MEDS: INCRUSE ELLIPTA (PATIENT'S OWN MED) INH (07:37)
[2018-03-19] MEDS: BREO ELLIPTA INH (07:38)
[2018-03-19 07:40] LABS: IONIZED CALCIUM 4.8 MG/DL (4.5-5.3)
[2018-03-19 07:59] LABS: OSMOLALITY SERUM 290 MOSM/KG (280-301)
[2018-03-19 08:13] LABS: LACTIC ACID SEPSIS PROTOCOL 4.4 MMOL/L (0.4-2.0)
[2018-03-19 12:08] LABS: BEDSIDE GLUCOSE 222 MG/DL (80-115)
[2018-03-19] MEDS: LOPERAMIDE 2 MG CAP PO (15:49)
[2018-03-19] MEDS: ONDANSETRON 4MG/2ML VIAL (J2405) IV (15:49)
[2018-03-19] MEDS: FAT EMULSION IV 20% 500 ML IV (17:09)
[2018-03-19] MEDS: AMINO AC/ELECTROLYTE/DEX/CALC 2,000 ML IV (17:09)
[2018-03-19 19:05] LABS: ANION GAP 8 MEQ/L (8-16); BLOOD UREA NITROGEN 29 MG/DL (7-18); CALCIUM LEVEL 8.6 MG/DL (8.8-10.2); CARBON DIOXIDE LEVEL 27 MEQ/L (21-32); CHLORIDE LEVEL 101 MEQ/L (98-107); CREATININE FOR GFR 1.22 MG/DL (0.70-1.30); GLOMERULAR FILTRATION RATE > 60.0 (>49); GLUCOSE, FASTING 220 MG/DL (70-100); POTASSIUM SERUM 3.7 MEQ/L (3.5-5.1); SODIUM LEVEL 136 MEQ/L (136-145)
[2018-03-19 23:56] LABS: BEDSIDE GLUCOSE 199 MG/DL (80-115)
[2018-03-20] MEDS: NS 0.45% IV ×3 (01:17→16:23)
[2018-03-20] MEDS: SODIUM BICARBONATE IV ×3 (01:17→16:23)
[2018-03-20] MEDS: POTASSIUM CHLORIDE IV ×3 (01:17→16:23)
[2018-03-20] MEDS: HYDROCORTISONE 100 MG/2 ML VIAL (J1720) IV ×4 (02:20→20:49)
[2018-03-20] MEDS: PIPERACILLIN/TAZOBACTAM SOD 2.25 GM in D5W MINI-BAG PLUS 50 ML IV ×4 (02:20→20:49)
[2018-03-20] MEDS: SODIUM CHLORIDE 0.9% INJ 10 ML SYR IV ×2 (05:25→16:23)
[2018-03-20 05:35] LABS: BEDSIDE GLUCOSE 166 MG/DL (80-115)
[2018-03-20 05:50] LABS: HEMATOCRIT 33.6 % (42.0-52.0); HEMOGLOBIN 11.5 g/dl (13.5-17.5); MEAN CORPUSCULAR HGB CONC 34.2 g/dl (32.0-36.5); MEAN CORPUSCULAR VOLUME 96.6 fl (80.0-96.0); PLATELET COUNT, AUTOMATED 199 10^3/uL (150-450); RED BLOOD COUNT 3.48 10^6/uL (4.30-6.10); RED CELL DISTRIBUTION WIDTH 13.2 % (11.5-14.5)
[2018-03-20] MEDS: OCTREOTIDE ACETATE 100 MCG/ML VIAL (J2354) IV ×3 (06:18→23:57)
[2018-03-20 07:33] LABS: INR 0.96; PROTHROMBIN TIME 12.8 SECONDS (12.1-14.4)
[2018-03-20 07:34] LABS: FIBRINOGEN 358 MG/DL (221-452); PARTIAL THROMBOPLASTIN TIME 25.6 SECONDS (25.4-37.6)
[2018-03-20] MEDS: BREO ELLIPTA INH (08:35)
[2018-03-20] MEDS: INCRUSE ELLIPTA (PATIENT'S OWN MED) INH (08:35)
[2018-03-20 09:34] LABS: ALBUMIN 2.1 GM/DL (3.2-5.2); ALBUMIN/GLOBULIN RATIO 0.84 (1.00-1.93); ALKALINE PHOSPHATASE 53 U/L (45-117); ALT/SGPT 29 U/L (12-78); ANION GAP 6 MEQ/L (8-16); AST/SGOT 26 U/L (7-37); BILIRUBIN,TOTAL 0.3 MG/DL (0.2-1.0); BLOOD UREA NITROGEN 25 MG/DL (7-18); CARBON DIOXIDE LEVEL 28 MEQ/L (21-32); CHLORIDE LEVEL 100 MEQ/L (98-107); CREATININE FOR GFR 1.16 MG/DL (0.70-1.30); GLOMERULAR FILTRATION RATE > 60.0 (>49); GLUCOSE, FASTING 173 MG/DL (70-100); MAGNESIUM LEVEL 2.1 MG/DL (1.8-2.4); POTASSIUM SERUM 3.4 MEQ/L (3.5-5.1); SODIUM LEVEL 134 MEQ/L (136-145); THYROID STIMULATING HORMONE 0.124 uIU/ML (0.358-3.740); TOTAL PROTEIN 4.6 GM/DL (6.4-8.2)
[2018-03-20 10:00] LABS: CORTISOL BASELINE 30.6 UG/DL (4.3-22.4)
[2018-03-20 10:01] LABS: CORTISOL 60 MINUTES 36.1 UG/DL
[2018-03-20 10:01] LABS: CORTISOL 30 MINUTES 36.7 UG/DL
[2018-03-20 13:43] LABS: BEDSIDE GLUCOSE 225 MG/DL (80-115)
[2018-03-20 18:07] LABS: ANION GAP 9 MEQ/L (8-16); BLOOD UREA NITROGEN 24 MG/DL (7-18); CALCIUM LEVEL 8.9 MG/DL (8.8-10.2); CARBON DIOXIDE LEVEL 27 MEQ/L (21-32); CHLORIDE LEVEL 102 MEQ/L (98-107); CREATININE FOR GFR 1.18 MG/DL (0.70-1.30); GLOMERULAR FILTRATION RATE > 60.0 (>49); GLUCOSE, FASTING 124 MG/DL (70-100); POTASSIUM SERUM 3.3 MEQ/L (3.5-5.1); SODIUM LEVEL 138 MEQ/L (136-145)
[2018-03-20] MEDS: ALPRAZolam 0.25 MG TAB PO (23:57)
[2018-03-21 00:07] LABS: ANTI-SACCHAROMYCES CEREV. IgA 39.9 Units (0.0-24.9); ANTI-SACCHAROMYCES CEREV. IgG <20.0 Units (0.0-24.9); Antimyeloperxidase(MPO) Abs <9.0 U/mL (0.0-9.0); Antiproteinase 3 (PR-3) Abs <3.5 U/mL (0.0-3.5); Cytoplasmic (C-ANCA) <1:20 titer (Neg:<1:20); Perinuclear (P-ANCA) <1:20 titer (Neg:<1:20)
[2018-03-21 00:34] LABS: BEDSIDE GLUCOSE 121 MG/DL (80-115)
[2018-03-21] MEDS: PIPERACILLIN/TAZOBACTAM SOD 2.25 GM in D5W MINI-BAG PLUS 50 ML IV ×4 (01:46→20:18)
[2018-03-21] MEDS: HYDROCORTISONE 100 MG/2 ML VIAL (J1720) IV ×3 (04:01→20:18)
[2018-03-21] MEDS: SODIUM CHLORIDE 0.9% INJ 10 ML SYR IV ×2 (05:00→16:07)
[2018-03-21 05:42] LABS: HEMATOCRIT 34.4 % (42.0-52.0); HEMOGLOBIN 11.5 g/dl (13.5-17.5); MEAN CORPUSCULAR HGB CONC 33.4 g/dl (32.0-36.5); MEAN CORPUSCULAR VOLUME 95.8 fl (80.0-96.0); PLATELET COUNT, AUTOMATED 232 10^3/uL (150-450); RED BLOOD COUNT 3.59 10^6/uL (4.30-6.10); WHITE BLOOD COUNT 10.8 10^3/uL (4.0-10.0)
[2018-03-21 06:15] LABS: ANION GAP 9 MEQ/L (8-16); BLOOD UREA NITROGEN 25 MG/DL (7-18); CALCIUM LEVEL 9.1 MG/DL (8.8-10.2); CARBON DIOXIDE LEVEL 27 MEQ/L (21-32); CHLORIDE LEVEL 100 MEQ/L (98-107); CREATININE FOR GFR 1.26 MG/DL (0.70-1.30); GLOMERULAR FILTRATION RATE > 60.0 (>49); GLUCOSE, FASTING 125 MG/DL (70-100); MAGNESIUM LEVEL 1.9 MG/DL (1.8-2.4); POTASSIUM SERUM 3.4 MEQ/L (3.5-5.1); SODIUM LEVEL 136 MEQ/L (136-145)
[2018-03-21] MEDS: OCTREOTIDE ACETATE 100 MCG/ML VIAL (J2354) IV ×2 (06:40→16:06)
[2018-03-21] MEDS: BREO ELLIPTA INH (07:29)
[2018-03-21] MEDS: INCRUSE ELLIPTA (PATIENT'S OWN MED) INH (07:30)
[2018-03-21] MEDS: LOPERAMIDE 2 MG CAP PO ×3 (09:45→18:55)
[2018-03-21] MEDS ORDERED: DIAPER RELIEF PASTE (DESITIN) 60GM TOP (13:00)
[2018-03-21] MEDS: PERCOCET 5MG/325MG TAB PO (13:13)
[2018-03-21] MEDS ORDERED: HYDROCORTISONE 100 MG/2 ML VIAL (J1720) IV (15:00)
[2018-03-21] MEDS: POTASSIUM CHLORIDE IV (16:05)
[2018-03-21] MEDS: SODIUM BICARBONATE IV (16:05)
[2018-03-21] MEDS: NS 0.45% IV (16:05)
[2018-03-22] MEDS: OCTREOTIDE ACETATE 100 MCG/ML VIAL (J2354) IV ×3 (01:14→15:12)
[2018-03-22 01:18] LABS: BEDSIDE GLUCOSE 115 MG/DL (80-115)
[2018-03-22] MEDS: HYDROCORTISONE 100 MG/2 ML VIAL (J1720) IV ×3 (05:09→20:57)
[2018-03-22] MEDS: SODIUM CHLORIDE 0.9% INJ 10 ML SYR IV ×2 (05:09→18:00)
[2018-03-22 05:54] LABS: HEMATOCRIT 38.3 % (42.0-52.0); HEMOGLOBIN 12.7 g/dl (13.5-17.5); MEAN CORPUSCULAR HEMOGLOBIN 32.2 pg (27.0-33.0); MEAN CORPUSCULAR HGB CONC 33.2 g/dl (32.0-36.5); MEAN CORPUSCULAR VOLUME 97.2 fl (80.0-96.0); PLATELET COUNT, AUTOMATED 283 10^3/uL (150-450); RED BLOOD COUNT 3.94 10^6/uL (4.30-6.10); RED CELL DISTRIBUTION WIDTH 13.3 % (11.5-14.5); WHITE BLOOD COUNT 14.7 10^3/uL (4.0-10.0)
[2018-03-22 06:17] LABS: ANION GAP 11 MEQ/L (8-16); BLOOD UREA NITROGEN 25 MG/DL (7-18); CALCIUM LEVEL 8.9 MG/DL (8.8-10.2); CARBON DIOXIDE LEVEL 26 MEQ/L (21-32); CHLORIDE LEVEL 101 MEQ/L (98-107); CREATININE FOR GFR 1.36 MG/DL (0.70-1.30); GLOMERULAR FILTRATION RATE 56.5 (>49); GLUCOSE, FASTING 112 MG/DL (70-100); MAGNESIUM LEVEL 2.1 MG/DL (1.8-2.4); POTASSIUM SERUM 3.1 MEQ/L (3.5-5.1); SODIUM LEVEL 138 MEQ/L (136-145)
[2018-03-22] MEDS: INCRUSE ELLIPTA (PATIENT'S OWN MED) INH (07:25)
[2018-03-22] MEDS: BREO ELLIPTA INH (07:25)
[2018-03-22] MEDS: LOPERAMIDE 2 MG CAP PO (10:42)
[2018-03-22] MEDS: PERCOCET 5MG/325MG TAB PO (10:43)
[2018-03-22 12:17] LABS: BEDSIDE GLUCOSE 112 MG/DL (80-115)
[2018-03-22] MEDS: SODIUM BICARBONATE IV (13:13)
[2018-03-22] MEDS: NS 0.45% IV (13:13)
[2018-03-22] MEDS: POTASSIUM CHLORIDE IV (13:13)
[2018-03-22 18:41] LABS: ANION GAP 4 MEQ/L (8-16); BLOOD UREA NITROGEN 25 MG/DL (7-18); CALCIUM LEVEL 8.6 MG/DL (8.8-10.2); CARBON DIOXIDE LEVEL 29 MEQ/L (21-32); CHLORIDE LEVEL 107 MEQ/L (98-107); CREATININE FOR GFR 1.15 MG/DL (0.70-1.30); GLOMERULAR FILTRATION RATE > 60.0 (>49); GLUCOSE, FASTING 111 MG/DL (70-100); SODIUM LEVEL 140 MEQ/L (136-145)
[2018-03-23] MEDS: SODIUM CHLORIDE 0.9% INJ 10 ML SYR IV ×2 (05:04→16:48)
[2018-03-23] MEDS: HYDROCORTISONE 100 MG/2 ML VIAL (J1720) IV ×3 (05:04→20:04)
[2018-03-23 05:50] LABS: BEDSIDE GLUCOSE 113 MG/DL (80-115)
[2018-03-23] MEDS: INCRUSE ELLIPTA (PATIENT'S OWN MED) INH (06:38)
[2018-03-23] MEDS: BREO ELLIPTA INH (06:38)
[2018-03-23] MEDS: OCTREOTIDE ACETATE 100 MCG/ML VIAL (J2354) IV ×4 (06:50→22:46)
[2018-03-23] MEDS: POTASSIUM CHLORIDE IV ×3 (10:34→16:49)
[2018-03-23] MEDS: SODIUM BICARBONATE IV ×3 (10:34→16:49)
[2018-03-23] MEDS: NS 0.45% IV ×3 (10:34→16:49)
[2018-03-23 11:37] LABS: BEDSIDE GLUCOSE 174 MG/DL (80-115)
[2018-03-23 11:39] LABS: ANION GAP 7 MEQ/L (8-16); BLOOD UREA NITROGEN 23 MG/DL (7-18); CALCIUM LEVEL 8.6 MG/DL (8.8-10.2); CARBON DIOXIDE LEVEL 24 MEQ/L (21-32); CHLORIDE LEVEL 109 MEQ/L (98-107); CREATININE FOR GFR 1.21 MG/DL (0.70-1.30); GLOMERULAR FILTRATION RATE > 60.0 (>49); GLUCOSE, FASTING 188 MG/DL (70-100); SODIUM LEVEL 140 MEQ/L (136-145)
[2018-03-23] MEDS: POTASSIUM CHLORIDE 10 MEQ SR TABLET PO ×2 (15:18→20:05)
[2018-03-23] MEDS: CARBAMIDE PEROXIDE 6.5% OTIC SOLN 15ML AU (20:05)
[2018-03-24] MEDS: HYDROCORTISONE 100 MG/2 ML VIAL (J1720) IV ×3 (04:58→20:33)
[2018-03-24] MEDS: SODIUM CHLORIDE 0.9% INJ 10 ML SYR IV ×4 (04:59→23:16)
[2018-03-24 05:45] LABS: ANION GAP 4 MEQ/L (8-16); BLOOD UREA NITROGEN 19 MG/DL (7-18); CALCIUM LEVEL 8.6 MG/DL (8.8-10.2); CARBON DIOXIDE LEVEL 28 MEQ/L (21-32); CHLORIDE LEVEL 113 MEQ/L (98-107); CREATININE FOR GFR 0.89 MG/DL (0.70-1.30); GLOMERULAR FILTRATION RATE > 60.0 (>49); GLUCOSE, FASTING 105 MG/DL (70-100); MAGNESIUM LEVEL 1.9 MG/DL (1.8-2.4); POTASSIUM SERUM 3.3 MEQ/L (3.5-5.1); SODIUM LEVEL 145 MEQ/L (136-145)
[2018-03-24] MEDS: OCTREOTIDE ACETATE 100 MCG/ML VIAL (J2354) IV ×3 (06:28→23:16)
[2018-03-24] MEDS: SODIUM BICARBONATE IV ×2 (06:28→17:07)
[2018-03-24] MEDS: POTASSIUM CHLORIDE IV ×2 (06:28→17:07)
[2018-03-24] MEDS: NS 0.45% IV ×2 (06:28→17:07)
[2018-03-24 06:51] LABS: BEDSIDE GLUCOSE 134 MG/DL (80-115)
[2018-03-24] MEDS: POTASSIUM CHLORIDE 10 MEQ SR TABLET PO ×2 (09:02→20:33)
[2018-03-24] MEDS: BREO ELLIPTA INH (09:02)
[2018-03-24] MEDS: INCRUSE ELLIPTA (PATIENT'S OWN MED) INH (09:02)
[2018-03-24] MEDS: CARBAMIDE PEROXIDE 6.5% OTIC SOLN 15ML AU ×2 (09:03→20:33)
[2018-03-25 00:20] LABS: BEDSIDE GLUCOSE 143 MG/DL (80-115)
[2018-03-25] MEDS: POTASSIUM CHLORIDE IV (02:27)
[2018-03-25] MEDS: SODIUM BICARBONATE IV (02:27)
[2018-03-25] MEDS: NS 0.45% IV (02:27)
[2018-03-25] MEDS: HYDROCORTISONE 100 MG/2 ML VIAL (J1720) IV ×3 (03:25→20:44)
[2018-03-25] MEDS: SODIUM CHLORIDE 0.9% INJ 10 ML SYR IV ×4 (05:25→20:44)
[2018-03-25 05:42] LABS: BASO % 0.4 % (0.0-1.0); EOS % 0.2 % (0.0-3.0); HEMATOCRIT 30.4 % (42.0-52.0); HEMOGLOBIN 9.9 g/dl (13.5-17.5); IMMATURE GRANULOCYTE % 2.3 % (0-3.0); LYMPH # 0.8 10^3/uL (1.5-4.5); LYMPH % 8.2 % (24.0-44.0); MEAN CORPUSCULAR HEMOGLOBIN 32.1 pg (27.0-33.0); MEAN CORPUSCULAR HGB CONC 32.6 g/dl (32.0-36.5); MEAN CORPUSCULAR VOLUME 98.7 fl (80.0-96.0); MONO # 0.4 10^3/uL (0.0-0.8); MONO % 3.8 % (0.0-5.0); NEUTROPHILS # 8.5 10^3/uL (1.8-7.7); NEUTROPHILS % 85.1 % (36.0-66.0); PLATELET COUNT, AUTOMATED 100 10^3/uL (150-450); RED BLOOD COUNT 3.08 10^6/uL (4.30-6.10); RED CELL DISTRIBUTION WIDTH 13.5 % (11.5-14.5)
[2018-03-25 06:07] LABS: ANION GAP 6 MEQ/L (8-16); BLOOD UREA NITROGEN 15 MG/DL (7-18); CARBON DIOXIDE LEVEL 25 MEQ/L (21-32); CHLORIDE LEVEL 111 MEQ/L (98-107); CREATININE FOR GFR 0.94 MG/DL (0.70-1.30); GLOMERULAR FILTRATION RATE > 60.0 (>49); GLUCOSE, FASTING 146 MG/DL (70-100); POTASSIUM SERUM 3.8 MEQ/L (3.5-5.1); SODIUM LEVEL 142 MEQ/L (136-145)
[2018-03-25] MEDS: OCTREOTIDE ACETATE 100 MCG/ML VIAL (J2354) IV ×3 (06:21→23:18)
[2018-03-25] MEDS: BREO ELLIPTA INH (07:59)
[2018-03-25] MEDS: INCRUSE ELLIPTA (PATIENT'S OWN MED) INH (07:59)
[2018-03-25] MEDS: POTASSIUM CHLORIDE 10 MEQ SR TABLET PO ×2 (08:32→20:44)
[2018-03-25] MEDS: CARBAMIDE PEROXIDE 6.5% OTIC SOLN 15ML AU ×2 (08:32→20:44)
[2018-03-26] MEDS: HYDROCORTISONE 100 MG/2 ML VIAL (J1720) IV ×2 (03:37→16:06)
[2018-03-26] MEDS: SODIUM CHLORIDE 0.9% INJ 10 ML SYR IV ×3 (05:07→20:36)
[2018-03-26 05:24] LABS: BASO % 0.2 % (0.0-1.0); EOS % 0.2 % (0.0-3.0); HEMATOCRIT 31.1 % (42.0-52.0); HEMOGLOBIN 10.1 g/dl (13.5-17.5); IMMATURE GRANULOCYTE % 2.4 % (0-3.0); LYMPH # 0.7 10^3/uL (1.5-4.5); LYMPH % 8.6 % (24.0-44.0); MEAN CORPUSCULAR HGB CONC 32.5 g/dl (32.0-36.5); MEAN CORPUSCULAR VOLUME 98.4 fl (80.0-96.0); MONO # 0.4 10^3/uL (0.0-0.8); MONO % 4.4 % (0.0-5.0); NEUTROPHILS # 7.3 10^3/uL (1.8-7.7); NEUTROPHILS % 84.2 % (36.0-66.0); RED BLOOD COUNT 3.16 10^6/uL (4.30-6.10); RED CELL DISTRIBUTION WIDTH 13.7 % (11.5-14.5); WHITE BLOOD COUNT 8.7 10^3/uL (4.0-10.0)
[2018-03-26 05:49] LABS: ANION GAP 6 MEQ/L (8-16); BLOOD UREA NITROGEN 11 MG/DL (7-18); CALCIUM LEVEL 8.2 MG/DL (8.8-10.2); CARBON DIOXIDE LEVEL 27 MEQ/L (21-32); CHLORIDE LEVEL 111 MEQ/L (98-107); CREATININE FOR GFR 0.79 MG/DL (0.70-1.30); GLOMERULAR FILTRATION RATE > 60.0 (>49); GLUCOSE, FASTING 111 MG/DL (70-100); POTASSIUM SERUM 3.6 MEQ/L (3.5-5.1); SODIUM LEVEL 144 MEQ/L (136-145)
[2018-03-26 05:59] LABS: PLATELET COUNT, AUTOMATED 84 10^3/uL (150-450)
[2018-03-26] MEDS: OCTREOTIDE ACETATE 100 MCG/ML VIAL (J2354) IV ×2 (06:06→20:34)
[2018-03-26] MEDS: POTASSIUM CHLORIDE 10 MEQ SR TABLET PO ×2 (08:20→20:33)
[2018-03-26] MEDS: CARBAMIDE PEROXIDE 6.5% OTIC SOLN 15ML AU ×2 (08:20→20:35)
[2018-03-26] MEDS: BREO ELLIPTA INH (08:24)
[2018-03-26] MEDS: INCRUSE ELLIPTA (PATIENT'S OWN MED) INH (08:25)
[2018-03-27] MEDS: HYDROCORTISONE 100 MG/2 ML VIAL (J1720) IV (04:55)
[2018-03-27] MEDS: SODIUM CHLORIDE 0.9% INJ 10 ML SYR IV (04:55)
[2018-03-27 05:12] LABS: BASO % 0.3 % (0.0-1.0); EOS # 0.1 10^3/uL (0.0-0.50); EOS % 0.8 % (0.0-3.0); HEMATOCRIT 31.3 % (42.0-52.0); HEMOGLOBIN 10.1 g/dl (13.5-17.5); IMMATURE GRANULOCYTE % 4.1 % (0-3.0); LYMPH # 1.4 10^3/uL (1.5-4.5); LYMPH % 17.8 % (24.0-44.0); MEAN CORPUSCULAR HEMOGLOBIN 31.8 pg (27.0-33.0); MEAN CORPUSCULAR HGB CONC 32.3 g/dl (32.0-36.5); MEAN CORPUSCULAR VOLUME 98.4 fl (80.0-96.0); MONO # 0.5 10^3/uL (0.0-0.8); MONO % 6.8 % (0.0-5.0); NEUTROPHILS # 5.5 10^3/uL (1.8-7.7); NEUTROPHILS % 70.2 % (36.0-66.0); RED BLOOD COUNT 3.18 10^6/uL (4.30-6.10); RED CELL DISTRIBUTION WIDTH 13.8 % (11.5-14.5); WHITE BLOOD COUNT 7.8 10^3/uL (4.0-10.0)
[2018-03-27 05:30] LABS: PLATELET COUNT, AUTOMATED 73 10^3/uL (150-450)
[2018-03-27] MEDS: INCRUSE ELLIPTA (PATIENT'S OWN MED) INH (07:46)
[2018-03-27] MEDS: BREO ELLIPTA INH (07:47)
[2018-03-27] MEDS: POTASSIUM CHLORIDE 10 MEQ SR TABLET PO (08:44)
[2018-03-27] MEDS: CARBAMIDE PEROXIDE 6.5% OTIC SOLN 15ML AU (08:44)
[2018-03-28 00:10] LABS: SODIUM FECAL 53 mmol/L (.)
[2018-03-28 00:10] LABS: CHLORIDE FECAL 53 mmol/L (.); OSMOLARITY STOOL 108 mOsmol/kg (Not Estab.); POTASSIUM FECAL 41 mmol/L (.)
== END 2018-03-27 11:16 | disposition home or self-care (01) | DRG 393 ==
LOC: M MSPAV 03-15 00:07 → M PCU 03-17 18:51 → M MSPAV 03-22 18:50 → M ED 10:04 → M ICU 03-15 17:55 → M ED INP 11:14
PROC: 02HV33Z Insertion of Infusion Device into Superior Vena Cava, Percutaneous Approach (ICD-10-PCS; principal; 2018-03-15)
DX: K52.1 Toxic gastroenteritis and colitis (principal); R57.1 Hypovolemic shock; E87.4 Mixed disorder of acid-base balance; N17.9 Acute kidney failure, unspecified; R65.10 Systemic inflammatory response syndrome (SIRS) of non-infectious origin without acute organ dysfunction; E87.1 Hypo-osmolality and hyponatremia; C64.9 Malignant neoplasm of unspecified kidney, except renal pelvis; I12.9 Hypertensive chronic kidney disease with stage 1 through stage 4 chronic kidney disease, or unspecified chronic kidney disease; R73.03 Prediabetes; L30.9 Dermatitis, unspecified; T45.1X5A Adverse effect of antineoplastic and immunosuppressive drugs, initial encounter; F17.210 Nicotine dependence, cigarettes, uncomplicated; N18.3 Chronic kidney disease, stage 3 (moderate); E87.8 Other disorders of electrolyte and fluid balance, not elsewhere classified; J44.9 Chronic obstructive pulmonary disease, unspecified; E87.6 Hypokalemia; Z85.46 Personal history of malignant neoplasm of prostate; Z90.5 Acquired absence of kidney; Z86.718 Personal history of other venous thrombosis and embolism; Z86.711 Personal history of pulmonary embolism; Z98.1 Arthrodesis status; Z79.52 Long term (current) use of systemic steroids; Z79.84 Long term (current) use of oral hypoglycemic drugs; Z79.51 Long term (current) use of inhaled steroids; Z79.899 Other long term (current) drug therapy; Z88.6 Allergy status to analgesic agent; Z92.21 Personal history of antineoplastic chemotherapy

== ENCOUNTER → 2018-12-12 | Outpatient (CLI) | payer MEDICARE, BC, OTHER ==
[~2018-12-12] MED LIST: ALPR0.25 PO; ASPI81CH49 PO; ASPI81TA85 PO; ATIV1TAB7 PO; B121000T PO; BREO1INH INH; BREO1INH PO; CABO60TA PO; CENTTAB36 PO; CYAN100049 PO; FAMO1TAB25 PO; IMOD2CAP PO; INCR1INH INH; K-TA10TA2 PO; KEFL500C17 PO; KLOR10TA76 PO; LISI-542 PO; LISI10TA4 PO; METF500T13 PO; MULT1TAB50 PO; MULTCAP PO; OCTR200I IJ; OPDI1INJ IV; PEPC10TA6 PO; POTA20EL PO; PRED10TA2 PO; PRED20TA PO; PROAAER10 INH; PROC10TA4 PO; [UNRECOGNIZED DRUG - CODE] IV
--- NOTE | 2018-12-12 13:42 | REP ---
PET/CT: HISTORY: Restaging renal cancer. The patient is status post left nephrectomy. COMPARISONS: Comparison PET/CT study December 10, 2015. Comparison chest CT study July 28, 2018. Prior chest CT study reviewed November 13, 2015. Comparison abdomen CT study July 19, 2018. TECHNIQUE: 45 minutes following the intravenous injection of a 9.42 mCi dose of F-18 FDG, three-dimensional PET scintigraphy is acquired from the skull base to the proximal thighs. Triplanar noncontrast CT scanning is acquired through the same anatomic range for attenuation correction, and image registration with scan parameters optimized to minimize radiation exposure to the patient. PET scintigraphy and CT datasets were fused and displayed on a workstation with multiplanar and projection display capability. PET/CT FINDINGS: There is mild bilateral gynecomastia, left greater than right. No hypermetabolic uptake is seen in either breast. There is subcarinal and right hilar lymphadenopathy which is larger and has progressed in the interval since the 2016 prior studies. Only mildly hypermetabolic uptake is seen within these nodes, maximum standard uptake value 2.96 in the subcarinal and 3.38 in the right hilar adenopathy today. Similar SUV values were observed previously although these node foci were smaller. No pulmonary parenchymal hypermetabolic focus is seen. 2 the previous study showed a left lower lobe nodule. This measures 8 mm in size and is unchanged. There is no abnormal tracer accumulation in this nodule. Head and neck soft tissues are unremarkable. In the abdomen and pelvis, there is normal hepatic, splenic, and gastrointestinal FDG accumulation. The left kidney is surgically absent. There is no visible adenopathy. No abnormal abdominal or pelvic hypermetabolic focus is seen. IMPRESSION: Status post left nephrectomy. Right kidney is unremarkable. No abnormal hypermetabolic uptake is seen in the abdomen or pelvis. No pulmonary metastatic disease is appreciated. However, there is gradual progressive enlargement in right hilar and subcarinal adenopathy. Mildly hypermetabolic uptake is seen in these nodes. Mild gynecomastia. Stable 8 mm non hypermetabolic left lower lobe lung nodule. Electronically Signed by Jhon Ahmadi MD 12/12/2018 02:21 P
== END ==
LOC: M PLARAD 09:21
PROVIDERS: ATTEND Internal Medicine Hematology & Oncology
DX: C64.1 Malignant neoplasm of right kidney, except renal pelvis (principal); Z90.5 Acquired absence of kidney; R91.1 Solitary pulmonary nodule; R59.0 Localized enlarged lymph nodes
CPT/HCPCS: 78815; A9552

== ENCOUNTER 2019-03-01 16:51 | Emergency (ER) | payer MEDICARE, BC, OTHER ==
[~2019-03-01] VITALS: Ht 193 cm; Wt 106.5 kg
[2019-03-01 18:04] LABS: BASO # 0.1 10^3/uL (0.0-0.2); BASO % 1.3 % (0.0-1.0); EOS # 0.2 10^3/uL (0.0-0.5); EOS % 2.5 % (0.0-3.0); HEMATOCRIT 50.8 % (42.0-52.0); LYMPH # 2.1 10^3/uL (1.5-5.0); LYMPH % 27.6 % (24.0-44.0); MEAN CORPUSCULAR HEMOGLOBIN 30.6 pg (27.0-33.0); MEAN CORPUSCULAR HGB CONC 33.5 g/dl (32.0-36.5); MEAN CORPUSCULAR VOLUME 91.4 fl (80.0-96.0); MONO # 0.6 10^3/uL (0.0-0.8); NEUTROPHILS # 4.5 10^3/uL (1.5-8.5); NEUTROPHILS % 60.2 % (36.0-66.0); PLATELET COUNT, AUTOMATED 194 10^3/uL (150-450); RED BLOOD COUNT 5.56 10^6/uL (4.30-6.10); WHITE BLOOD COUNT 7.5 10^3/uL (4.0-10.0)
[2019-03-01 18:15] LABS: PROTHROMBIN TIME 12.9 SECONDS (11.8-14.0)
[2019-03-01 18:37] LABS: ALBUMIN 3.9 GM/DL (3.2-5.2); ALT/SGPT 39 U/L (12-78); BILIRUBIN,DIRECT 0.1 MG/DL (0.0-0.2); BILIRUBIN,TOTAL 0.4 MG/DL (0.2-1.0); BLOOD UREA NITROGEN 15 MG/DL (7-18); CALCIUM LEVEL 9.6 MG/DL (8.8-10.2); CARBON DIOXIDE LEVEL 24 MEQ/L (21-32); CHLORIDE LEVEL 112 MEQ/L (98-107); CK-MB VALUE MASS 1.5 NG/ML (<3.6); CPK CREATINE PHOSPHOKINASE 99 U/L (39-308); CREATININE FOR GFR 1.15 MG/DL (0.70-1.30); GLOMERULAR FILTRATION RATE > 60.0 (>49); GLUCOSE, FASTING 111 MG/DL (70-100); MB/CK RELATIVE INDEX 1.52 (< OR =4); NT-PRO BNP 22 PG/ML (<125); POTASSIUM SERUM 4.2 MEQ/L (3.5-5.1); SODIUM LEVEL 142 MEQ/L (136-145); TOTAL PROTEIN 6.5 GM/DL (6.4-8.2); TROPONIN I < 0.02 NG/ML (< 0.10)
[2019-03-01] MEDS ORDERED: ISOVUE-370 76% 100ML VIAL (Q9967) As Ordered ONE (18:58)
--- NOTE | 2019-03-01 19:55 | REPVR ---
PROCEDURE INFORMATION: Exam: CT Angiography Chest With Contrast Exam date and time: 03/01/2019 7:09 PM Clinical history: 63 years old, male; Other: Hemoptysis; Additional info: Hemoptysis, renal CA TECHNIQUE: Imaging protocol: Computed tomographic angiography of the chest with intravenous contrast. 3D rendering: MIP reconstructed images were created and reviewed. Radiation optimization: All CT scans at this facility use at least one of these dose optimization techniques: automated exposure control; mA and/or kV adjustment per patient size (includes targeted exams where dose is matched to clinical indication); or iterative reconstruction. Contrast material: ISOVUE 370; Contrast volume: 75 ml; Contrast route: IV; COMPARISON: CT ANGIO CHEST - OUTSIDE PRIOR 07/28/2018 10:10 AM FINDINGS: Pulmonary arteries: No filling defects in the pulmonary arteries to suggest pulmonary emboli. Aorta: Unremarkable. No aortic aneurysm. No aortic dissection. Lungs: Dependent subsegmental pulmonary atelectasis. Dependent subsegmental pulmonary atelectasis. Medial left lower lobe 1.6 cm nodule. Right lower lobe posterior basilar subsegmental atelectasis or mild infiltrate. Pleural space: Unremarkable. No pneumothorax. No pleural effusion. Heart: Unremarkable. No cardiomegaly. No pericardial effusion. Liver: Hepatic steatosis. Lymph nodes: Subcarinal and right hilar adenopathy. Right suprahilar 4.1 x 4.7 cm lymph node. Subcarinal 6.7 x 5.7 cm lymph node. 2 cm left hilar lymph node. Bones/joints: Mild levoconvex thoracic curvature. Soft tissues: Unremarkable. IMPRESSION: 1. No pulmonary emboli. 2. Marginally increased metastatic adenopathy. 3. Right lower lobe posterior basilar subsegmental atelectasis or mild infiltrate. Electronically signed by: Ludin Lucio On 03/01/2019 19:55:13 PM
[2019-03-01] MEDS ORDERED: AZIT-12 PO (20:11)
[2019-03-01] MEDS ORDERED: CEFD1CAP8 PO (20:11)
[2019-03-01] MEDS ORDERED: AZITHROMYCIN 250 MG TAB PO ONE (20:15)
[2019-03-01] MEDS ORDERED: CEFDINIR 300 MG CAP (OMNICEF) PO ONE (20:15)
[2019-03-01 20:24] VITALS: BP 116/71
--- NOTE | 2019-03-02 19:42 | ECGEPIP ---
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
--- NOTE | 2019-03-02 20:41 | ED PDOC ---
Post-Departure Follow-Up dr vijay wang faxed formal report of cta chest for fu Yuko Ramirez MD Mar 02, 2019 20:41
== END 2019-03-01 20:34 | disposition home or self-care (01) ==
LOC: M ED 16:51
DX: R91.8 Other nonspecific abnormal finding of lung field (principal); J44.9 Chronic obstructive pulmonary disease, unspecified; R04.2 Hemoptysis; R06.02 Shortness of breath; R05 Cough; I45.89 Other specified conduction disorders; E11.9 Type 2 diabetes mellitus without complications; I10 Essential (primary) hypertension; Z85.53 Personal history of malignant neoplasm of renal pelvis; F17.200 Nicotine dependence, unspecified, uncomplicated; Z79.899 Other long term (current) drug therapy; Z88.6 Allergy status to analgesic agent
CPT/HCPCS: 71275; 80048; 80076; 82550; 82553; 83880; 84484; 85025; 85610; 93005; 93041; 94760; 99285; Q9967

== ENCOUNTER → 2019-04-24 | Outpatient (CLI) | payer MEDICARE, BC, OTHER ==
[~2019-04-24] MED LIST changes: +AZIT-12 PO; +CEFD1CAP8 PO
--- NOTE | 2019-04-24 16:44 | REP ---
PET/CT: History: Restaging right renal carcinoma. Comparisons: Comparison PET-CT studies December 12, 2018, April 15, 2016, and the December 10, 2015. TECHNIQUE: 52 minutes following the intravenous injection of a 9.33 mCi dose of F-18 FDG, three-dimensional PET scintigraphy is acquired from the skull base to the proximal thighs. Triplanar noncontrast CT scanning is acquired through the same anatomic range for attenuation correction, and image registration with scan parameters optimized to minimize radiation exposure to the patient. PET scintigraphy and CT datasets were fused and displayed on a workstation with multiplanar and projection display capability. PET/CT Findings: There is no abnormal hypermetabolic uptake in the abdomen or pelvis. The patient is status post prior left nephrectomy. There is mucosal thickening affecting the left maxillary sinus consistent with paranasal sinusitis. The previously noted left lower lobe pulmonary nodule measures somewhat larger, 1.5 x 0.9 cm today. Maximum SUV value in this nodule is 3.19 mildly hypermetabolic. No other abnormal pulmonary parenchymal hypermetabolic uptake focus is seen. There is a small linear sub-centimeter nodule in the left upper lobe which does not show hypermetabolic uptake. This however is a new nodule when compared with the December 12, 2018 PET-CT study. There is mildly hypermetabolic uptake in subcarinal and right hilar lymph nodes. Maximum standard uptake value in the subcarinal node enlargement is 4.46. Maximum uptake in the right hilus is 4.32. There is a right pretracheal lymph node with maximum standard uptake 2.65 which is not definitely hypermetabolic. The head and neck soft tissues are unremarkable. Impression: The left lower lobe pulmonary nodule is enlarging and shows mildly hypermetabolic uptake today. The subcarinal and right hilar adenopathy shows hypermetabolic uptake and appears more prominent as well. There is a new nodule in the left upper lobe which does not show hypermetabolic uptake. No abnormal uptake focus is seen in the abdomen or pelvis. Electronically Signed by Jhon Ahmadi MD 04/24/2019 05:22 P
== END ==
LOC: M PLARAD 09:13
PROVIDERS: ATTEND Internal Medicine Medical Oncology
DX: C64.1 Malignant neoplasm of right kidney, except renal pelvis (principal); Z90.5 Acquired absence of kidney; R91.8 Other nonspecific abnormal finding of lung field
CPT/HCPCS: 78815; A9552

== ENCOUNTER → 2019-05-10 | Outpatient (CLI) | payer MEDICARE, BC, OTHER ==
[~2019-05-10] MED LIST changes: +AZIT500T5 PO; +PEPC1TAB5 PO
--- NOTE | 2019-05-10 11:13 | REP ---
Clinical: Follow up abnormal lung findings. Technique: Axial noncontrast images from the thoracic inlet to the upper abdomen with coronal and sagittal re-formations. Comparison: 03/01/2019. Findings: Mediastinal/subcarinal and right hilar adenopathy with lymph nodes measuring up to approximately 4.2 cm again noted and unchanged. The lung bello demonstrate stable chronic interstitial changes and subtle residual right basilar fibroatelectatic change. The 1.5 cm nodule along the medial left lower lobe (image 64) is unchanged. No new pulmonary parenchymal consolidation, new nodule or mass lesion appreciated. No pleural effusion. Tracheobronchial tree is patent. Further evaluation of the mediastinum demonstrates stable atherosclerotic changes to the thoracic aorta without aortic aneurysm. No cardiomegaly or significant pericardial effusion. Limited upper abdomen demonstrates hepatic steatosis. Impression: 1. Mediastinal and hilar adenopathy essentially unchanged. 2. 1.5 cm nodule in the medial left lower lobe unchanged. 3. No new acute pleuroparenchymal abnormality noted. Electronically Signed by Angelo Cunningham MD 05/10/2019 11:04 A
== END ==
LOC: M RAD 10:22
PROVIDERS: ATTEND Internal Medicine Pulmonary Disease
DX: R91.8 Other nonspecific abnormal finding of lung field (principal)

== ENCOUNTER → 2019-07-27 | Outpatient (CLI) | payer MEDICARE, BC, OTHER ==
[~2019-07-27] MED LIST changes: +ELIQ5TAB PO; +FARX1TAB3 PO; +FISH1000 PO; +FOLGTAB5 PO; +GASTROGRAFIN SOLUTION 30ML (Q9963) As Ordered ONE; +ISOVUE-370 76% 100ML VIAL (Q9967) As Ordered ONE; +METF-839 PO
[2019-07-27 07:42] LABS: BASO # 0.1 10^3/uL (0.0-0.2); BASO % 1.5 % (0.0-1.0); EOS # 0.2 10^3/uL (0.0-0.5); EOS % 3.1 % (0.0-3.0); HEMATOCRIT 53.6 % (42.0-52.0); HEMOGLOBIN 17.4 g/dl (13.5-17.5); LYMPH # 1.6 10^3/uL (1.5-5.0); LYMPH % 23.9 % (24.0-44.0); MEAN CORPUSCULAR HEMOGLOBIN 30.5 pg (27.0-33.0); MEAN CORPUSCULAR HGB CONC 32.5 g/dl (32.0-36.5); MEAN CORPUSCULAR VOLUME 93.9 fl (80.0-96.0); MONO # 0.6 10^3/uL (0.0-0.8); MONO % 8.1 % (0.0-5.0); NEUTROPHILS # 4.3 10^3/uL (1.5-8.5); NEUTROPHILS % 63.1 % (36.0-66.0); PLATELET COUNT, AUTOMATED 173 10^3/uL (150-450); RED BLOOD COUNT 5.71 10^6/uL (4.30-6.10); WHITE BLOOD COUNT 6.8 10^3/uL (4.0-10.0)
[2019-07-27 08:07] LABS: ALBUMIN 3.9 GM/DL (3.2-5.2); ALT/SGPT 41 U/L (12-78); BILIRUBIN,TOTAL 0.3 MG/DL (0.2-1.0); BLOOD UREA NITROGEN 18 MG/DL (7-18); CALCIUM LEVEL 10.4 MG/DL (8.8-10.2); CARBON DIOXIDE LEVEL 21 MEQ/L (21-32); CHLORIDE LEVEL 115 MEQ/L (98-107); CREATININE FOR GFR 1.16 MG/DL (0.70-1.30); GLOMERULAR FILTRATION RATE > 60.0 (>49); GLUCOSE, FASTING 114 MG/DL (70-100); POTASSIUM SERUM 4.7 MEQ/L (3.5-5.1); SODIUM LEVEL 143 MEQ/L (136-145); TOTAL PROTEIN 6.7 GM/DL (6.4-8.2)
--- NOTE | 2019-07-27 11:32 | REP ---
CT of the chest without IV contrast: Comparisons are 05/10/2019 without IV contrast and 03/01/2019 with IV contrast. The subcarinal/right hilar adenopathy is unchanged measuring up to 4.2 cm in the right hilar area. This is seen to better advantage on the study with IV contrast dated 03/01/2019. There is a new pleural-based right upper lobe lung nodule on image 51 measuring 11 mm. The known left lower lobe lung nodule in the medial basilar segment adjacent to the aorta is now multilobulated and has increased measuring 2.5 cm, previously 1.5 cm. There are no other lung nodules or masses. The unenhanced thoracic aorta is unremarkable. Cardiac size is normal. No pericardial effusion. Upper abdomen: There is hepato steatosis. The visualized areas of the gallbladder, pancreas and spleen are unremarkable. The right adrenal is unremarkable. There are calcifications versus surgical suture line in the left adrenal, unchanged from 08/24/2013. Impression: There is a new right upper lobe lung nodule. The left lower lobe lung nodule has increased in size and now has a multilobular appearance. The subcarinal and hilar adenopathy is unchanged. Electronically Signed by Jeff Kong MD 07/27/2019 11:24 A
--- NOTE | 2019-07-27 14:41 | REP ---
CT of the abdomen and pelvis without IV or bowel contrast for rectal carcinoma: Additionally, the patient has history of left nephrectomy for renal cell carcinoma . The study is performed contiguous with the chest CT this same date. Comparison is an outside study dated 07/19/2018. The unenhanced hepatic parenchyma is homogeneous. Liver is less dense than the spleen suggestive of hepato steatosis. The gallbladder, pancreas and spleen are unremarkable. The right adrenal is unremarkable. There are surgical clips in the left adrenal fossa. There is no mass in the left adrenal fossa. The unenhanced right kidney is unremarkable. The left kidney has been resected. There is no tumor recurrence in the left renal fossa. The abdominal aorta is unremarkable. There is no periaortic adenopathy or mass. The bowel and mesentery are unremarkable except for diverticula in the sigmoid colon. There is no diverticulitis. Pelvis: The appendix and terminal ileum are unremarkable. The bladder is unremarkable. There is no adenopathy or ascites. No rectal wall thickening or masses are identified. There are no lytic, blastic or destructive skeletal changes. There is degenerative disc disease in the lumbar spine at L1-2 and L4-5. Impression: Hepato steatosis. Diverticulosis without diverticulitis. Left nephrectomy without evidence of tumor recurrence. No rectal wall thickening or masses are identified. There is no adenopathy or ascites. The Electronically Signed by Jeff Kong MD 07/27/2019 02:33 P
== END ==
LOC: M RAD 06:56
PROVIDERS: ATTEND Internal Medicine Medical Oncology
DX: C20 Malignant neoplasm of rectum (principal); R91.8 Other nonspecific abnormal finding of lung field; K76.0 Fatty (change of) liver, not elsewhere classified; K57.30 Diverticulosis of large intestine without perforation or abscess without bleeding; Z90.5 Acquired absence of kidney
CPT/HCPCS: 36415; 71250; 74176; 80053; 85025; Q9963; Q9967

== ENCOUNTER → 2019-11-07 | Outpatient (CLI) | payer MEDICARE, BC, OTHER ==
[~2019-11-07] MED LIST changes: -GASTROGRAFIN SOLUTION 30ML (Q9963) As Ordered ONE; -ISOVUE-370 76% 100ML VIAL (Q9967) As Ordered ONE; +VITA500C24 PO
[2019-11-07 08:53] LABS: BASO # 0.1 10^3/uL (0.0-0.2); BASO % 1.2 % (0.0-1.0); EOS # 0.2 10^3/uL (0.0-0.5); EOS % 2.9 % (0.0-3.0); HEMATOCRIT 54.5 % (42.0-52.0); HEMOGLOBIN 17.6 g/dl (13.5-17.5); LYMPH # 1.9 10^3/uL (1.5-5.0); LYMPH % 28.3 % (24.0-44.0); MEAN CORPUSCULAR HEMOGLOBIN 29.5 pg (27.0-33.0); MEAN CORPUSCULAR HGB CONC 32.3 g/dl (32.0-36.5); MEAN CORPUSCULAR VOLUME 91.4 fl (80.0-96.0); MONO # 0.5 10^3/uL (0.0-0.8); MONO % 7.6 % (0.0-5.0); NEUTROPHILS # 4.1 10^3/uL (1.5-8.5); NEUTROPHILS % 59.7 % (36.0-66.0); PLATELET COUNT, AUTOMATED 169 10^3/uL (150-450); RED BLOOD COUNT 5.96 10^6/uL (4.30-6.10); WHITE BLOOD COUNT 6.8 10^3/uL (4.0-10.0)
[2019-11-07 10:01] LABS: ALBUMIN 3.8 GM/DL (3.2-5.2); ALT/SGPT 35 U/L (12-78); BILIRUBIN,TOTAL 0.3 MG/DL (0.2-1.0); BLOOD UREA NITROGEN 18 MG/DL (7-18); CALCIUM LEVEL 9.9 MG/DL (8.8-10.2); CARBON DIOXIDE LEVEL 24 MEQ/L (21-32); CHLORIDE LEVEL 115 MEQ/L (98-107); CREATININE FOR GFR 1.06 MG/DL (0.70-1.30); GLOMERULAR FILTRATION RATE > 60.0 (>49); GLUCOSE, FASTING 114 MG/DL (70-100); POTASSIUM SERUM 4.7 MEQ/L (3.5-5.1); SODIUM LEVEL 145 MEQ/L (136-145); THYROXINE (T4) 6.7 UG/DL (4.5-12.0); TOTAL PROTEIN 6.6 GM/DL (6.4-8.2); TOTAL T3 102.4 NG/DL (60.0-181.0)
== END ==
LOC: M RAD 07:48
PROVIDERS: ATTEND Internal Medicine Medical Oncology
DX: C64.9 Malignant neoplasm of unspecified kidney, except renal pelvis (principal)

== ENCOUNTER → 2020-04-28 | Outpatient (CLI) | payer MEDICARE, BC, OTHER ==
[~2020-04-28] MED LIST changes: -ASPI81TA85 PO; +ASPI81TA86 PO; +LIDO2.5C15 TOP; +LIDOCAINE 1% MDV 20ML VIAL As Ordered ONE; +MIDAZOLAM INJ 2MG/2ML VIAL (J2250 PER 1MG) As Ordered ONE; +PROMETHAZINE INJ 25 MG/ML VIAL (J2550) As Ordered ONE; +ZINC1TAB2 PO; +ceFAZolin 2 GM/D5W 50 ML IV BAG (J0690 PER 500MG) As Ordered ONE; +diphenhydrAMINE 50MG/ML VIAL (J1200) As Ordered ONE; +fentaNYL 100 MCG/2 ML INJECTION (J3010) As Ordered ONE
--- NOTE | 2020-04-28 12:31 | IRHP ---
[facility] IR Pre-Procedure H & P General Date of Service: Apr 28, 2020 Procedure: Same Day Surgery Interval History and Physical I have seen the patient and reviewed last H & P performed within 30 days. There is no significant interval change. History of Present Illness Chief Complaint The patient is a 64-year-old male admitted with a reason for visit of Malignant Neoplasm Of Right Kidney, Except Renal P. PRE-PROCEDURE DIAGNOSIS: kidney cancer HEART: normal rate. LUNGS: normal breathing at rest. ASA Classification ASA Classification: III-Severe systemic dis. Mallampati Score: II NPO: Yes Problems with prior sedation: No Obstructive Sleep Apnea: No Plan moderate sedation Allergies Coded Allergies: No Known Allergies (Unverified , 05/30/19) Home Medications Scheduled Apixaban (Eliquis), 5 MG PO BID, (Reported) Dapagliflozin Propanediol (Farxiga), 0.5 TAB PO DAILY, (Reported) Famotidine (Pepcid), 1 TAB PO BID, (Reported) Fluticasone/Vilanterol (Breo Ellipta 100-25 Mcg INH), 1 PUFF PO DAILY, (Reported) Lidocaine/Prilocaine (Lidocaine-Prilocaine Cream), 1 APLCT TOP ASDIRECTED Multivitamin/Iron/Folic Acid (Centrum Adults Tablet), 1 EACH PO DAILY, (Reported) [place]-3 Fatty Acids/Fish Oil (Fish Oil 1,000 mg Capsule), 1 CAP PO DAILY, (Reported) Umeclidinium [place] (Incruse Ellipta), 1 PUFF INH DAILY, (Reported) Vit D3/Folic Acid/B2/B6/B12 (Folgard Tablet), 1 TAB PO DAILY, (Reported) Zinc (Zinc), 1 TAB PO DAILY, (Reported) Scheduled PRN Albuterol Sulfate (Proair Hfa), 2 PUFF INH Q4H PRN for SHORTNESS OF BREATH EDY CARRERO MD Apr 28, 2020 12:31
[2020-04-28 15:30] VITALS: BP 130/72
--- NOTE | 2020-05-02 09:11 | POST-OPPD ---
Postoperative Procedure Note Date Of Procedure: Apr 28, 2020 Time Of Procedure: 16:00 IR Ultrasound and fluoroscopy guided port placement IR Ultrasound of the neck. IR Moderate sedation. Clinical indication: Renal cancer. Physician: Dr. Elena. Procedure: The patient was advised of the benefits, risks, and alternatives of the procedure and informed consent was obtained. A time-out was performed with verification of the patient's name, MRN, site of procedure and type of procedure to be performed. The patient was positioned in the supine position on the angiographic table. The site was prepped and draped in the usual sterile fashion. Moderate sedation was performed by the physician including the presence of an independent trained RN who assisted and monitored the patient's level of consciousness and physiologic status. Following the administration of fentanyl and Versed , the physician spent 45 minutes of continuous face to face time with the patient. Ultrasound of the neck reveals a patent and compressible right internal jugular vein. A telephone engineer radiograph reveals hilar fullness. The neck and anterior chest wall were anesthetized with lidocaine. The right internal jugular vein was accessed using a microintroducer needle under ultrasound guidance, via a lateral approach. An 018 wire was advanced into the superior vena cava, the needle was removed and a microsheath was placed. An Amplatz wire was then passed into the inferior vena cava. An incision at the internal jugular vein access site and anterior chest wall were made using a scalpel. An incision was made at the anterior chest wall. A small pocket was created using a combination of blunt and sharp dissection. A tunneling device was then used to pass the catheter from the pocket to the neck puncture site. An 8- [place] Angio BizGreet Smart power port was then positioned in the pocket. The catheter was then measured and cut. The introducer sheath was exchanged for a peel-away sheath. The catheter was passed through the peel-away sheath into the internal jugular vein and the peel- away sheath was removed. The port tip was positioned at the cavoatrial junction. The port was then accessed with a Sierra needle. The port flushes and aspirates well. The puncture site in the neck was closed. The chest wall incision was then closed with 2-0 Vicryl and 4-0 Monocryl. Glue and Steri- Strips were applied. A sterile dressing was then applied. The patient tolerated the procedure well and was returned to the PRU in stable condition. Estimated blood loss: <5 ml. Complications: None. Conclusion: 1. Successful placement of an 8-[place] Angio dynamics Smart power port via the right internal jugular vein. The port is ready for immediate use. 2. Patient to follow up in IR clinic in 2 weeks. Thank you for this referral. EDY ELENA MD May 02, 2020 09:10
== END ==
LOC: M IRPRO 11:35
PROVIDERS: ATTEND Internal Medicine Medical Oncology
DX: C64.1 Malignant neoplasm of right kidney, except renal pelvis (principal); Z79.899 Other long term (current) drug therapy
CPT/HCPCS: 36561; 99152; 99153; C1769; C1788; C1894; J0690; J1200; J1642; J1644; J2250; J3010

== ENCOUNTER → 2020-05-20 | Outpatient (POV) | payer MEDICARE, BC, OTHER ==
[~2020-05-20] MED LIST changes: -LIDOCAINE 1% MDV 20ML VIAL As Ordered ONE; -MIDAZOLAM INJ 2MG/2ML VIAL (J2250 PER 1MG) As Ordered ONE; -PROMETHAZINE INJ 25 MG/ML VIAL (J2550) As Ordered ONE; -ceFAZolin 2 GM/D5W 50 ML IV BAG (J0690 PER 500MG) As Ordered ONE; -diphenhydrAMINE 50MG/ML VIAL (J1200) As Ordered ONE; -fentaNYL 100 MCG/2 ML INJECTION (J3010) As Ordered ONE
--- NOTE | 2020-05-26 11:45 | IRPN ---
[facility] IR Progress Note IR Progress Note DATE: May 20, 2020 No answer. Allergies Coded Allergies: No Known Allergies (Unverified , 05/30/19) EDY CARRERO MD May 26, 2020 11:45
== END ==
LOC: M TMIRPOV 08:18
PROVIDERS: ATTEND Radiology Diagnostic Radiology
DX: Z45.2 Encounter for adjustment and management of vascular access device (principal)

== ENCOUNTER → 2020-09-22 | Outpatient (CLI) | payer MEDICARE, BC, OTHER ==
[~2020-09-22] MED LIST changes: +COVI100V IM; +GLIP10TA PO; +LIDO1CRE42 TOP; -LIDO2.5C15 TOP; +LIDOCAINE 1% MDV 20ML VIAL As Ordered ONE; -LISI-542 PO; +LISI-898 PO; +LISI10TA22 PO; -LISI10TA4 PO; +LORA1TAB4 PO; +SODIUM BICARBONATE 8.4% INJ 50MEQ 50 ML VIAL As Ordered ONE; +[UNRECOGNIZED DRUG - OTHER] PO
[2020-09-22 09:20] LABS: BASO # 0.1 10^3/uL (0.0-0.2); BASO % 1.8 % (0.0-1.0); EOS # 0.2 10^3/uL (0.0-0.5); EOS % 2.9 % (0.0-3.0); HEMATOCRIT 50.1 % (42.0-52.0); HEMOGLOBIN 15.5 g/dl (13.5-17.5); LYMPH % 26.5 % (24.0-44.0); MEAN CORPUSCULAR HEMOGLOBIN 27.5 pg (27.0-33.0); MEAN CORPUSCULAR HGB CONC 30.9 g/dl (32.0-36.5); MEAN CORPUSCULAR VOLUME 88.8 fl (80.0-96.0); MONO # 0.8 10^3/uL (0.0-0.8); NEUTROPHILS # 4.4 10^3/uL (1.5-8.5); NEUTROPHILS % 58.4 % (36.0-66.0); PLATELET COUNT, AUTOMATED 208 10^3/uL (150-450); RED BLOOD COUNT 5.64 10^6/uL (4.30-6.10); WHITE BLOOD COUNT 7.6 10^3/uL (4.0-10.0)
[2020-09-22 10:40] VITALS: BP 141/93
--- NOTE | 2020-09-22 12:10 | REP ---
INDICATION: MYELOPROLIFERATIVE DISORDERS. COMPARISON: None. TECHNIQUE: The procedure is performed by ABHILASH Vilchis, under the direct supervision of Dr. Echeverria. The risks and benefits of the procedure were explained to the patient and informed consent was obtained both orally and written. Directly prior to the start of the procedure, a formal timeout was done in the exam room. The right iliac crest was localized using CT guidance. Skin was prepped and draped in the usual sterile fashion. Sixteen ml of buffered lidocaine was used as a local anesthetic. FINDINGS: Using CT guidance an 11 gauge bone biopsy system was inserted. Approximately 10 mL of marrow fluid was obtained, as well as 1 core of bone. Patient tolerated the procedure well and there were no immediate complications. After the appropriate amount of monitored convalescence the patient was discharged from the department. IMPRESSION: CT-guided bone marrow aspiration and core bone biopsy. <Electronically signed by Alina Coto > 09/22/20 1040 <Electronically signed by Jeff Echeverria > 09/22/20 [id number]
== END ==
LOC: M IRPRO 08:22
PROVIDERS: ATTEND Internal Medicine Medical Oncology
DX: D47.1 Chronic myeloproliferative disease (principal); D75.0 Familial erythrocytosis

== ENCOUNTER → 2021-01-13 | Outpatient (CLI) | payer MEDICARE, BC, OTHER ==
[~2021-01-13] MED LIST changes: +FAMO10TA50 PO; -FAMO1TAB25 PO; -LIDOCAINE 1% MDV 20ML VIAL As Ordered ONE; -SODIUM BICARBONATE 8.4% INJ 50MEQ 50 ML VIAL As Ordered ONE
--- NOTE | 2021-01-13 12:10 | REP ---
INDICATION: RESTAGING RIGHT KIDNEY CANCER C64.1. COMPARISON: Comparison is made with PET-CT study from April 24, 2019. TECHNIQUE: Fifty-one minutes following the intravenous injection of a 9.77 mCi dose of F-18 FDG, three-dimensional PET scintigraphy is acquired from the skull base to the proximal thighs. Triplanar noncontrast CT scanning is acquired through the same anatomic range for attenuation correction, and image registration with scan parameters optimized to minimize radiation exposure to the patient. PET scintigraphy and CT datasets were fused and displayed on a workstation with multiplanar and projection display capability. FINDINGS: Head and neck soft tissues are unremarkable. There is mildly hypermetabolic bilateral hilar and subcarinal mediastinal lymphadenopathy. Maximum standard uptake value in the subcarinal region is 5.56. The left lower lobe perihilar pulmonary nodule has increased in the interval since the last study and become more hypermetabolic, maximum standard uptake value 8.67. There is a equivocal increased uptake in the left side of the upper sacrum, maximum standard uptake value 3.61. This is asymmetric but no bony destructive lesion is appreciated on accompanying CT study. This is nonspecific. No other abnormal skeletal uptake is seen. No abnormal hypermetabolic uptake is seen within the abdomen or pelvis. The left kidney is surgically absent. IMPRESSION: The left lower lobe pulmonary nodule at has increased in size and avidity, currently measuring 3.6 x 2.5 cm and with SUV of 8.67. Equivocal uptake in the left sacrum. Essentially stable hilar and mediastinal uptake. <Electronically signed by Facundo Ahmadi > 01/13/21 [id number]
== END ==
LOC: M PLARAD 08:37
PROVIDERS: ATTEND Internal Medicine Medical Oncology
DX: C64.1 Malignant neoplasm of right kidney, except renal pelvis (principal); R91.1 Solitary pulmonary nodule; R59.0 Localized enlarged lymph nodes; Z90.5 Acquired absence of kidney
CPT/HCPCS: 78815; A9552

== ENCOUNTER → 2021-01-21 | Outpatient (CLI) | payer MEDICARE, BC, OTHER ==
--- NOTE | 2021-01-21 15:00 | RADONC.CN ---
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 In 2016 he developed lesions in the right hilum and subcarinal which when biopsied returned metastatic RCC. He underwent 3 lines of systemic therapy for this culminating in dual immunotherapy, which precipitated severe autoimmune colitis. He has subsequently stopped all systemic treatments, his disease has remained quiescent except for a growing LLL nodule which on recent PET-CT has increased to 3.7 cm in size. He is seen for consideration of SBRT to this solitary lesion. Diagnosis/Treatment History Oncologic History History of polycythemia vera on chronic phlebotomy History of prostate cancer s/p prostatectomy -2005 left nephrectomy. 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 -Sunitinib January 2017 - December 2017, stopped for progression. -Cabozantinib January 2018 stopped after one to two cycles for rash and epistaxis. -Nivolumab/ipilimumab one cycles 03/01/2019. Stopped due to severe autoimmune colitis complicated by acute renal failure, lactic acidosis hospitalization requiring steroid course. On observation since with borderline mediastinal lymph nodes. -05/30/2019 bronchoscopic biopsy of subcarinal node positive for metastatic renal cell carcinoma. -01/13/21 PET-CT with growing LLL nodule to 3.7 cm. Recent data: FINDINGS: Head and neck soft tissues are unremarkable. There is mildly hypermetabolic bilateral hilar and subcarinal mediastinal lymphadenopathy. Maximum standard uptake value in the subcarinal region is 5.56. The left lower lobe perihilar pulmonary nodule has increased in the interval since the last study and become more hypermetabolic, maximum standard uptake value 8.67. There is a equivocal increased uptake in the left side of the upper sacrum, maximum standard uptake value 3.61. This is asymmetric but no bony destructive lesion is appreciated on accompanying CT study. This is nonspecific. No other abnormal skeletal uptake is seen. No abnormal hypermetabolic uptake is seen within the abdomen or pelvis. The left kidney is surgically absent. IMPRESSION: The left lower lobe pulmonary nodule at has increased in size and avidity, currently measuring 3.6 x 2.5 cm and with SUV of 8.67. Equivocal uptake in the left sacr um. Essentially stable hilar and mediastinal uptake. Interval History Here today alone, very upset that he presented to have his blood drawn early and instead waited for over 1 hour. He does not intend to pursue additional systemic therapy under any circumstances, given the colitis he developed in 2019 led to prolonged hospitalization and 90 lb weight loss. He has no complaints today. No CP, SOB, N, V, no diarrhea. Appetite is good and energy levels are adequate. 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 Past Medical History: COPD PCV DMII RCC Past Surgical History: Left nephrectomy RP Family History: No family history of cancer Social History: Current 1 ppd smoker 50+ pack years Drinks occasionally Allergies / Meds Allergies: Coded Allergies: No Known Allergies (Unverified , 05/30/19) Home Meds Active Scripts Lidocaine/Prilocaine (Lidocaine-Prilocaine Cream) 2.5%/2.5% Cream..g., 1 APLCT TOP ASDIRECTED, #30 GRAM APPLY A GENEROUS, DIME SIZED AMOUNT TO YOUR PORT ABOUT 1 HOUR BEFORE YOUR APPOINTMENT. COVER WITH SARAN WRAP. Prov:MIHAI BUTTERFIELD MD FACP 04/18/20 Albuterol Sulfate (Proair Hfa) 108 Mcg/Act Aer, 2 PUFF INH Q4H PRN for SHORTNESS OF BREATH for 30 Days, #1 INH 3 Refills Prov:Grace Sifuentes MD 05/01/18 Reported Medications Covid-19 Vacc,Mrna(Moderna)/Pf (Moderna Covid19 Vacc(Unapprov)) 100 Mcg/0.5 Ml Vial, 100 MCG IM, VIAL 09/09/20 B2/B6/Folic/C/D3/Gluta/Astaxan (Tobakient Capsule) 1 Each Capsule, 1 EACH PO DAILY, CAP 09/09/20 Glipizide (Glipizide) 10 Mg Tablet, 5 MG PO DAILY for 30 Days, #60 TAB 07/17/20 Zinc (Zinc) 50 Mg Tablet, 1 TAB PO DAILY for 30 Days, #30 TAB 04/03/20 Fluticasone/Vilanterol (Breo Ellipta 100-25 Mcg INH) 1 Each Blst.w.dev, 1 PUFF PO DAILY for 30 Days, #1 EA 11/13/19 Sadler-3 Fatty Acids/Fish Oil (Fish Oil 1,000 mg Capsule) 1 Each Capsule, 1 CAP PO DAILY for 30 Days, #30 CAP 06/25/19 Dapagliflozin Propanediol (Farxiga) 10 Mg Tablet, 0.5 TAB PO DAILY for 30 Days, #30 TAB 06/25/19 Apixaban (Eliquis) 5 Mg Tablet, 5 MG PO BID for 30 Days, #60 TAB 05/25/19 Famotidine (Pepcid) 20 Mg Tablet, 1 TAB PO BID for 30 Days, #60 TAB 04/27/19 Multivitamin/Iron/Folic Acid (Centrum Adults Tablet) 1 Each Tablet, 1 EACH PO DAILY, TAB 12/04/18 Umeclidinium Norris (Incruse Ellipta) 62.5 Mcg/Inh Inh, 1 PUFF INH DAILY, INH 03/03/18 Discontinued Scripts Lorazepam (Lorazepam) 1 Mg Tablet, 1 MG PO BIDP PRN for ANXIETY/AGITATION MDD 2, #2 TAB To be taken 30 minutes prior to procedure. Prov:MIHAI BUTTERFIELD MD FACP 09/10/20 Review of Systems Constitutional: Denies: Fatigue, Weight Loss Eyes: Denies: Pain HEENT: Denies: Head Aches Skin: Denies: Rash Pulmonary: Reports: Cough; Denies: Dyspnea, Pleuritic Chest Pain Cardiovascular: Denies: Chest Pain Gastrointestinal: Denies: Nausea, Vomiting Genitourinary: Denies: Dysuria, Incontinence Hematologic: Denies: Bruising, Bleeding Excessively Endocrine: Denies: Cold Intolerance Musculoskeletal: Denies: Neck pain, Back pain Neurological: Denies: Weakness, Numbness Psych: Reports: Mood Normal Vital Signs Wt 218 lbs T 98 P 71 RR 18 BP 158/89 O2 96% Pain 0 Fatigue 0 General Exam: Alert, Cooperative Eye Exam: PERRLA, EOMI ENT EXAM: Atraumatic Neck Exam: Supple Chest Exam: Clear to auscultation, Normal air movement; Negative: Wheezing Heart Exam: Rate Normal, Regular Rhythm Abdomen Exam: Soft Extremity Exam: Negative: Edema Skin Exam: Nl turgor and temperature, Rash Neuro Exam: Normal Gait, Normal Speech Psych Exam: Mental status NL, Mood NL Diagnostic and Laboratory Diagnostic Review Radiologic images, relevant labs and pathology reports were personally reviewed and discussed with Mr. Martin. Assessment and Plan Impression Mr. 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 In 2017 he developed lesions in the right hilum and subcarinal which when biopsied returned metastatic RCC. He underwent 3 lines of systemic therapy for this culminating in dual immunotherapy, which precipitated severe autoimmune colitis. He has subsequently stopped all systemic treatments, his disease has remained quiescent except for a growing LLL nodule which on recent PET-CT has increased to 3.7 cm in size. He is seen for consideration of SBRT to this solitary lesion. Stage RCC left stage IV Performance Status ECOG 0 Plan We had an extensive discussion with Mr. Martin regarding the diagnosis at hand and available therapeutic options. I note he had a long-latency metastatic progression in the chest from his original left RCC diagnosed in 2006 (latency of 10 years). 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 The LLL lesion is the only focus of conclusive pathological uptake on the current PET-CT and it has been increasing in size. Thus this is a solitary metastatic lesion. The equivocal uptake in the mediastinal and hilar mignon stations can be followed for now, as to treat them empirically or in conjunction with the LLL nodule would require him to accept the risk of significant esophageal toxicity, which he is not willing to incur at this time. With respect to the LLL lesion treatment, it is amenable to SBRT 50-60 Gy in 5 fractions with 4DCT/ITV/DCA planning. We discussed the logistics of receiving radiation therapy in detail including the need for a 1-time planning session. We reviewed the side effects of treatment including fatigue and 5-10% risk of clinical pneumonitis. In his case I discussed that after treatment I would follow him with body CT scans and pursue metabolic imaging only in the presence of enlarging mignon foci and or new symptoms of concern. I explained that as focal treatment this proposed course does not preclude the development of additional lesions down the line, but that as long as he is resolute on a systemic therapy-free approach (as he is at this time) we can repeat RT safely to other body sites if needed. If there was widespread progression in the future I would implore him to consider additional systemic therapy. After discussing the risks, benefits and alternatives to radiation therapy, Mr. Martin was amenable to pursuing radiotherapy. All questions were answered to the patient's satisfaction. We instructed the patient that if there were any questions,concerns or changes in clinical status in the interim to contact us. Recommendations SBRT to the LLL lesion 50-60 Gy in 5 fractions 4DCT simulation in the coming week Will follow with body CTs thereafter in 3 months Billing Statement Total time of [42] minutes was spent preparing for the visit [2], obtaining HPI [7], examining the patient [2], reviewing diagnostic tests [6], discussing management options [13], coordinating care [3], and writing this note [9]. RICHIE MARTINEZ MD Jan 21, 2021 15:00
== END ==
LOC: M ONCR 11:09
PROVIDERS: ATTEND General Practice
DX: C77.1 Secondary and unspecified malignant neoplasm of intrathoracic lymph nodes (principal); D45 Polycythemia vera; E11.9 Type 2 diabetes mellitus without complications; F17.210 Nicotine dependence, cigarettes, uncomplicated; J44.9 Chronic obstructive pulmonary disease, unspecified; R91.1 Solitary pulmonary nodule; Z79.899 Other long term (current) drug therapy; Z85.46 Personal history of malignant neoplasm of prostate; Z85.528 Personal history of other malignant neoplasm of kidney; Z90.5 Acquired absence of kidney

== ENCOUNTER 2021-01-29 13:39 | Outpatient (RCR) | payer MEDICARE, BC, OTHER ==
[~2021-01-29 13:39] MED LIST changes: -KLOR10TA76 PO; +POTA-136 PO
== END 2021-02-12 ==
LOC: M ONCR 13:39
PROVIDERS: ATTEND General Practice
DX: C78.02 Secondary malignant neoplasm of left lung (principal)

== ENCOUNTER 2021-02-20 10:09 | Outpatient (RCR) | payer MEDICARE, BC, OTHER ==
[~2021-02-20 10:09] MED LIST changes: +BREO1INH3 INH
== END 2021-03-15 ==
LOC: M ONCR 10:09
PROVIDERS: ATTEND General Practice
DX: C78.02 Secondary malignant neoplasm of left lung (principal)

== ENCOUNTER → 2021-05-28 | Outpatient (CLI) | payer MEDICARE, BC, OTHER ==
[~2021-05-28] MED LIST changes: -CEFD1CAP8 PO; +CEFD300C41 PO; -LISI-898 PO; +LISI5TAB11 PO; -PROC10TA4 PO; +PROC10TA5 PO
== END ==
LOC: M ONCR 13:06
PROVIDERS: ATTEND General Practice
DX: C78.02 Secondary malignant neoplasm of left lung (principal); Z92.3 Personal history of irradiation; F17.210 Nicotine dependence, cigarettes, uncomplicated; Z79.899 Other long term (current) drug therapy

== ENCOUNTER → 2021-09-30 | Outpatient (CLI) | payer MEDICARE, BC, OTHER | LOC: M ONCR 14:42 | PROVIDERS: ATTEND General Practice | DX: C78.02 Secondary malignant neoplasm of left lung (principal); C78.01 Secondary malignant neoplasm of right lung; F17.210 Nicotine dependence, cigarettes, uncomplicated; Z79.01 Long term (current) use of anticoagulants; Z92.25 Personal history of immunosuppression therapy; Z79.51 Long term (current) use of inhaled steroids; Z79.899 Other long term (current) drug therapy; Z85.520 Personal history of malignant carcinoid tumor of kidney; Z85.46 Personal history of malignant neoplasm of prostate; Z90.79 Acquired absence of other genital organ(s); Z90.5 Acquired absence of kidney; Z92.3 Personal history of irradiation; Z92.21 Personal history of antineoplastic chemotherapy ==

== ENCOUNTER → 2021-12-01 | Outpatient (CLI) | payer MEDICARE, BC, OTHER | LOC: M ONCR 08:40 | PROVIDERS: ATTEND General Practice | DX: Z08 Encounter for follow-up examination after completed treatment for malignant neoplasm (principal); R05.9 Cough, unspecified; R59.0 Localized enlarged lymph nodes; F17.210 Nicotine dependence, cigarettes, uncomplicated; R91.1 Solitary pulmonary nodule; Z85.46 Personal history of malignant neoplasm of prostate; Z85.528 Personal history of other malignant neoplasm of kidney; Z86.2 Personal history of diseases of the blood and blood-forming organs and certain disorders involving the immune mechanism; Z79.01 Long term (current) use of anticoagulants; Z79.51 Long term (current) use of inhaled steroids; Z79.899 Other long term (current) drug therapy; Z90.5 Acquired absence of kidney; Z90.79 Acquired absence of other genital organ(s); Z92.3 Personal history of irradiation; Z92.21 Personal history of antineoplastic chemotherapy; Z92.25 Personal history of immunosuppression therapy; Z85.118 Personal history of other malignant neoplasm of bronchus and lung ==

== ENCOUNTER → 2022-08-17 | Outpatient (CLI) | payer MEDICARE, BC, OTHER ==
[~2022-08-17] MED LIST changes: +FLON1SPR NARES
== END ==
LOC: M ONCR 08:49
PROVIDERS: ATTEND General Practice
DX: Z08 Encounter for follow-up examination after completed treatment for malignant neoplasm (principal); D75.1 Secondary polycythemia; Z85.520 Personal history of malignant carcinoid tumor of kidney; Z85.46 Personal history of malignant neoplasm of prostate; F17.210 Nicotine dependence, cigarettes, uncomplicated; Z79.51 Long term (current) use of inhaled steroids; Z79.84 Long term (current) use of oral hypoglycemic drugs; Z79.01 Long term (current) use of anticoagulants; Z90.5 Acquired absence of kidney; Z92.29 Personal history of other drug therapy; Z92.3 Personal history of irradiation

== ENCOUNTER → 2023-08-05 | Outpatient (CLI) | payer MEDICARE, BC ==
[~2023-08-05] MED LIST changes: +CEFD1CAP9 PO; -CEFD300C41 PO; -K-TA10TA2 PO; +LEVA45AE INH; -LIDO1CRE42 TOP; +LIDO30CR18 TOP; +LORA1TAB23 PO; -LORA1TAB4 PO; -OCTR200I IJ; +POTA-165 PO; -POTA20EL PO; +POTA20LI16 PO; +PROA1AER2 INH; +[UNRECOGNIZED DRUG - CODE] IJ
== END ==
LOC: M ONCR 08:45
PROVIDERS: ATTEND General Practice
DX: C78.02 Secondary malignant neoplasm of left lung (principal); C77.1 Secondary and unspecified malignant neoplasm of intrathoracic lymph nodes; R59.0 Localized enlarged lymph nodes; R91.1 Solitary pulmonary nodule; F17.210 Nicotine dependence, cigarettes, uncomplicated; Z79.51 Long term (current) use of inhaled steroids; Z79.84 Long term (current) use of oral hypoglycemic drugs; Z79.899 Other long term (current) drug therapy; Z92.3 Personal history of irradiation; Z85.46 Personal history of malignant neoplasm of prostate; Z90.79 Acquired absence of other genital organ(s); Z85.528 Personal history of other malignant neoplasm of kidney
CPT/HCPCS: 10005; 10006; 88305; G0463

== ENCOUNTER 2023-08-12 12:17 | Outpatient (RCR) | payer MEDICARE, BC | END 2023-08-14 | LOC: M ONCR 12:17 | PROVIDERS: ATTEND General Practice | DX: Z51.0 Encounter for antineoplastic radiation therapy (principal); C78.1 Secondary malignant neoplasm of mediastinum ==

== ENCOUNTER 2023-09-09 10:26 | Outpatient (RCR) | payer MEDICARE, BC ==
[~2023-09-09 10:26] MED LIST changes: +MAGICMW PO
[2023-09-16] MEDS ORDERED: OXYC1SOL3 PO (14:27)
== END 2023-09-13 ==
LOC: M ONCR 10:26
PROVIDERS: ATTEND General Practice
DX: Z51.0 Encounter for antineoplastic radiation therapy (principal); C78.02 Secondary malignant neoplasm of left lung; C78.1 Secondary malignant neoplasm of mediastinum

== ENCOUNTER → 2023-12-08 | Outpatient (CLI) | payer MEDICARE, BC ==
[~2023-12-08] MED LIST changes: +OXYC1SOL3 PO; +SEMA7TAB2 PO; +TRIA1CR80 TOP
== END ==
LOC: M ONCR 10:35
PROVIDERS: ATTEND General Practice
DX: R91.8 Other nonspecific abnormal finding of lung field (principal); F17.218 Nicotine dependence, cigarettes, with other nicotine-induced disorders; Z85.528 Personal history of other malignant neoplasm of kidney; Z71.2 Person consulting for explanation of examination or test findings; Z90.5 Acquired absence of kidney; Z92.25 Personal history of immunosuppression therapy; Z92.3 Personal history of irradiation; Z90.79 Acquired absence of other genital organ(s); Z85.46 Personal history of malignant neoplasm of prostate; Z79.51 Long term (current) use of inhaled steroids; Z79.01 Long term (current) use of anticoagulants; Z79.899 Other long term (current) drug therapy; Z79.84 Long term (current) use of oral hypoglycemic drugs

== ENCOUNTER → 2024-03-09 | Outpatient (CLI) | payer MEDICARE, BC ==
[~2024-03-09] MED LIST changes: +PRED50TA PO
== END ==
LOC: M ONCR 08:23
PROVIDERS: ATTEND General Practice
DX: C78.01 Secondary malignant neoplasm of right lung (principal); F17.210 Nicotine dependence, cigarettes, uncomplicated; R59.0 Localized enlarged lymph nodes; Z79.01 Long term (current) use of anticoagulants; Z79.899 Other long term (current) drug therapy; Z85.46 Personal history of malignant neoplasm of prostate; Z85.528 Personal history of other malignant neoplasm of kidney; Z90.5 Acquired absence of kidney; Z92.3 Personal history of irradiation

== ENCOUNTER → 2024-09-07 | Outpatient (CLI) | payer MEDICARE, BC ==
[~2024-09-07] MED LIST changes: +BUDE10.7 IH; +FARX1TAB3; -PRED50TA PO; +PRED50TA57 PO
== END ==
LOC: M ONCR 08:09
PROVIDERS: ATTEND General Practice
DX: C78.02 Secondary malignant neoplasm of left lung (principal); F17.218 Nicotine dependence, cigarettes, with other nicotine-induced disorders; Z90.5 Acquired absence of kidney; Z92.29 Personal history of other drug therapy; Z92.3 Personal history of irradiation; Z79.51 Long term (current) use of inhaled steroids; Z79.84 Long term (current) use of oral hypoglycemic drugs; Z79.01 Long term (current) use of anticoagulants; Z79.899 Other long term (current) drug therapy